=== PATIENT | female | born 1940 | race Caucasian/White ===

== ENCOUNTER 2020-09-09 12:32 | Inpatient (IN) ==
--- OUTSIDE RECORDS SUMMARY | 2020-09-09 12:36 | External Medical Summary | Continuity of Care Document ---
:1940 Author Name Shay Valencia Address Unavailable Unavailable , Care Team Providers Name Role Phone Smiley Solares [email or web address] [place] PCP, UNKNOWN Unavailable Unavailable Assessments Assessed Problems:Cervical spondylosis Problems Cervical spondylosis (721.0) (M47.812) Allergies and Adverse Reactions Furadantin SUSP (Allergy) Percocet TABS (Allergy) Medications Actigall 300 MG CAPS Refills: 0 Effexor 37.5 MG TABS Refills: 0 Fosamax 70 MG Oral Tablet Refills: 0 Simvastatin 10 MG Oral Tablet Refills: 0 hydroCHLOROthiazide 25 MG Oral Tablet Refills: 0 Lisinopril TABS Refills: 0 Multi-Vitamin TABS Refills: 0 Vitamin C TABS Refills: 0 Procedures History of Umbilical Hernia Repair Statu s: Completed History of Hallux Valgus (Bunion) Correction Status: Completed History of Tubal Ligation Status: Comple jane Immunizations Immunizations not documented Family History Unknown Family Member Family history of Hypertension (V17.49) Status: Active Comments: Family History Plan of Treatment Planned Observations Planned Goals not documented Results No Known Results Results not documented Encounters Appointment; Jules Solares M.D. 26-Sep-2010 10:20 Encounter Diagnosis: Problem not documented
--- NOTE | 2020-09-09 12:53 | Emergency Department Note ---
History of Present Illness General Chief complaint: Fall Time Seen by Provider: 09/09/20 12:38 Source: patient Mode of arrival: ambulatory Limitations: no limitations History of Present Illness Provider complaint: Left arm pain This is a 79-year-old female who presents to the ED with a chief complaint of left arm pain. The patient reports that she fell onto her left arm just prior to arrival. He was transported here by EMS. EMS provided morphine 8 mg IV in route which seems to improve the pain. She is neurovascular intact distally. She denies any other significant injuries other than striking her lip, there is a small laceration there. No anticoagulants. Home Medications Medication Instructions Recorded Confirmed Type ascorbic acid (vitamin C) [Vitamin 0 mg PO QAM 09/09/20 09/09/20 History C] atorvastatin 10 mg PO HS 09/09/20 09/09/20 History calcium carbonate-vitamin D3 1 tab PO QAM 09/09/20 09/09/20 History [Caltrate 600 plus D] cholecalciferol (vitamin D3) 0 mcg PO QAM 09/09/20 09/09/20 History [Vitamin D3] furosemide 20 mg PO QAM 09/09/20 09/09/20 History losartan 50 mg PO QAM 09/09/20 09/09/20 History metoprolol succinate 25 mg PO BID 09/09/20 09/09/20 History metoprolol succinate 50 mg PO BID 09/09/20 09/09/20 History multivitamin 1 tab PO QAM 09/09/20 09/09/20 History omeprazole 20 mg PO DAILYBB 09/09/20 09/09/20 History ursodiol 300 mg PO QAM 09/09/20 09/09/20 History venlafaxine 75 mg PO QAM 09/09/20 09/09/20 History Allergies Allergy/AdvReac Type Severity Reaction Status Date / Time acetaminophen Allergy Mild HAS TAKEN Verified 09/09/20 13:53 LORTAB AT HOME Nitrate Analogues Allergy Mild Verified 06/30/09 02:29 nitrofurantoin Allergy Mild Verified 06/30/09 02:29 oxycodone Allergy Mild HAS TAKEN Verified 09/09/20 13:53 LORTAB AT HOME amiodarone AdvReac Intermediate intolerant Unverified 09/09/20 13:53 Past Med/Surg History Medical History (Updated 09/09/20 @ 15:05 by Jeremy Milton DO) High cholesterol Hypertension Social History Smoking Status: Never smoker Review of Systems A total of 10 systems reviewed and were otherwise negative Physical Exam Vital Signs Vital Signs - 24 hr 09/09/20 12:48 Temperature 37.1 C Temperature Source Oral Pulse Rate 70 Pulse Rhythm Regular Pulse Strength Normal Respiratory Rate 16 Respiratory Effort / Characteristics Non-Labored Respiratory Depth Normal Respiratory Pattern Regular Blood Pressure 168/98 H Blood Pressure Mean 121 Blood Pressure Position Sitting Pulse Oximetry 94 Oxygen Delivery Method Room Air Sepsis Recent Fever Within 48 Hours No Sepsis New/Unexplained Change in Mental Status No Sepsis Action Taken by Nursing No Action Required CONSTITUTIONAL/VITAL SIGNS: Reviewed / noted above. GENERAL: Non-toxic in appearance. INTEGUMENTARY: Warm, dry, and [place]. HEAD: Normocephalic. There is a 2 cm laceration in the upper lip that is well approximated and does not include the subcutaneous fatty tissue. EYES: without scleral icterus or trauma. ENT/OROPHARYNX: clear and moist. LYMPHADENOPATHY/NECK: Is supple without lymphadenopathy or meningismus. RESPIRATORY: Lungs clear and equal. CARDIOVASCULAR: Regular rate and rhythm. GI/ABDOMEN: Soft and nontender. No organomegaly or pulsatile mass. No rebound or guarding. Normal bowel sounds. EXTREMITIES: Warm and well perfused. There is tenderness to palpation of the left humerus. Limited range of motion due to pain. Distally neurovascularly intact. BACK: No CVA tenderness. NEUROLOGICAL: Intact without focal deficits. PSYCHIATRIC: normal affect. MUSCULOSKELETAL: Normally developed with good muscle tone. TRIAGE NURSING DOCUMENTATION REVIEWED. Course Administered Medications Discontinued Medications Morphine Sulfate (Morphine Sulfate 4 Mg/Ml 1 Ml Carp\Vial) 4 mg IV NOW STA Stop: 09/09/20 13:49 Last Admin: 09/09/20 13:57 Dose: 4 mg Documented by: [id number] Medical Decision Making Differential Diagnosis Fracture, subluxation, dislocation, contusion, ligamentous injury, neurovascular, compartment syndrome, rhabdomyolysis, as well as other pathologies. Medical Records Attestation: I reviewed the patient's medical records. Imaging Data Radiologist's Impression: Humerus X-Ray 09/09/20 12:39 XR humerus LT 2V HISTORY: 79 years-old Female pain fall acute pain of the left shoulder status post fall COMPARISON: Left shoulder radiographs 10/13/2013 TECHNIQUE: 2 views of the left humerus FINDINGS: Left shoulder total joint arthroplasty. No dislocation. Demineralized appearance of the bones. There is an acute spiral fracture of the mid to distal humeral diaphysis which demonstrates complete displacement posteriorly measuring up to 3.8 cm and laterally measuring up to 1.4 cm. Mild apex medial volar angulation measuring up to 14 degrees. Mild soft tissue swelling. IMPRESSION: Acute displaced and angulated spiral fracture of the mid to distal humeral diaphysis. ACT 112: Negative or not required by law. The above report was generated using voice recognition software. It may contain grammatical, syntax or spelling errors. Electronically signed by: Desean Calderon M.D. 09/09/2020 2:27 PM MDM Narrative Patient presents after fall. Fractures of the left distal humerus. I spoke with Dr. Hoffman. He will see the patient in the ED. Medicine will admit. Patient was treated with IV morphine prehospital as well as here. Distally neurovascularly intact. Impression & Plan Fracture, humerus closed Discharge Plan Visit Data Chief Complaint: Fall ED Provider: Jeremy Milton Discharge Problem: Fracture, humerus closed Patient Disposition: Being Evaluated by Hospitalist Forms Stand Alone Forms: My [facility] [employer] Prescriptions Prescriptions: No Action multivitamin Tablet 1 tab PO QAM RF: 0 losartan 50 mg tablet 50 mg PO QAM RF: 0 ascorbic acid (vitamin C) [Vitamin C] 1,000 mg Tablet 0 mg PO QAM RF: 0 atorvastatin 10 mg tablet 10 mg PO HS RF: 0 metoprolol succinate 50 mg tablet extended release 24 hr 50 mg PO BID RF: 0 furosemide 20 mg tablet 20 mg PO QAM RF: 0 cholecalciferol (vitamin D3) [Vitamin D3] 25 mcg (1,000 unit) Tablet 0 mcg PO QAM RF: 0 Caltrate 600 plus D 600 mg (1,500 mg)-800 unit Tablet,Chewable 1 tab PO QAM RF: 0 venlafaxine 75 mg capsule,extended release 24hr 75 mg PO QAM RF: 0 ursodiol 300 mg capsule 300 mg PO QAM RF: 0 omeprazole 20 mg capsule,delayed release(DR/EC) 20 mg PO DAILYBB RF: 0 metoprolol succinate 25 mg tablet extended release 24 hr 25 mg PO BID RF: 0 Referrals Referrals: Erick Schmidt DO [Primary Care Provider] - Discharge Problem: Fracture, humerus closed Qualifiers: Encounter type: initial encounter Humerus Location: shaft Fracture morphology: spiral Fracture alignment: displaced Laterality: left Qualified Code(s): S42.342A - Displaced spiral fracture of shaft of humerus, left arm, initial encounter for closed fracture
[2020-09-09] MEDS ORDERED: MoRPHine SULFATE 4 MG/ML 1 ML CARP\\VIAL IV STA (13:48)
--- NOTE | 2020-09-09 14:29 | XRay Report ---
XR humerus LT 2V HISTORY: 79 years-old Female pain fall acute pain of the left shoulder status post fall COMPARISON: Left shoulder radiographs 10/13/2013 TECHNIQUE: 2 views of the left humerus FINDINGS: Left shoulder total joint arthroplasty. No dislocation. Demineralized appearance of the bones. There is an acute spiral fracture of the mid to distal humeral diaphysis which demonstrates complete displa cement posteriorly measuring up to 3.8 cm and laterally measuring up to 1.4 cm. Mild apex medial vola r angulation measuring up to 14 degrees. Mild soft tissue swelling. IMPRESSION: Acute displaced and angulated spiral fracture of the mid to distal humeral diaphysis. ACT 112: Negative or not required by law. The above report was generated using voice recognition software. It may contain grammatical, syntax o r spelling errors. Electronically signed by: Desean Calderon M.D. 09/09/2020 2:27 PM
[2020-09-09 15:12] LABS: Basophils # (auto) 0.05 K/uL (0-0.2); Basophils % (auto) 0.4 %; Eosinophils # (auto) 0.07 K/uL (0-0.5); Eosinophils % (auto) 0.6 %; Hemoglobin 14.5 g/dL (12.0-16.0); Immature Granulocytes # (auto) 0.03 K/uL (0.00-0.02); Immature Granulocytes % (auto) 0.3 %; Lymphocytes # (auto) 1.32 K/uL (1.2-3.4); Lymphocytes % (auto) 11.7 %; Mean Corpuscular Hgb Conc 34.5 g/dL (32-36); Mean Corpuscular Volume 89.9 fL (80-100); Mean Platelet Volume 10.2 fL (7.4-10.4); Monocytes # (auto) 0.72 K/uL (0.11-0.59); Monocytes % (auto) 6.4 %; Neutrophils # (auto) 9.06 K/uL (1.4-6.5); Neutrophils % (auto) 80.6 %; Platelet Count 265 K/uL (130-400); RDW Standard Deviation 42.5 fL (36.4-46.3); Red Blood Count 4.67 M/uL (4.2-5.4); White Blood Count 11.25 K/uL (4.8-10.8)
--- NOTE | 2020-09-09 15:21 | History & Physical Report ---
Date of Service September 09, 2020 Assessment & Plan (1) Periprosthetic fracture of shoulder: -Admit to [facility] -Consult Ortho, Dr. Yan Hoffman -Pain control and bowel regimen ordered -PT/OT consults -Allow diet tonight, n.p.o. after midnight except sips and chips with meds -History of previous left shoulder replacement done by Dr. Arceo years ago Medical Clearance: She does not have any cardiac symptoms Has had a negative Stress ECHO in March in 2019 (2) Hypertension: -Continue losartan 50 mg daily, metoprolol succinate 75 mg bid, Lasix 20 mg daily (3) Dyslipidemia: -Continue atorvastatin 10 mg to (4) Paroxysmal SVT (supraventricular tachycardia): -History of atrial tachycardia controlled with infrequent palpitations per Dr. House -Had normal coronary anatomy by left heart cath in 2012 (5) S/P mitral valve repair: -Done November 2012 -Follows with Dr. Gr with cardiology as outpatient -Continue Lasix 20 mg daily -Heart healthy diet -Blood pressure elevated likely secondary to pain and anxiety currently, monitor (6) Biliary cirrhosis: (7) Adjustment disorder with depressed mood: (8) DVT prophylaxis: History of Present Illness Primary Care Provider: Erick Schmidt DO This is an 79-year-old female with PMHx of hypertension, hyperlipidemia, history of paroxysmal SVT, status post mitral valve repair, Ruiz syndrome, osteoporosis, adjustment disorder with depressed mood, and GERD who presents after acute injury sustained earlier today. She reports that she was attempting to remove a flower on a [employer], alter this morning at [facility], and that she had gotten up on a step to reach it, however then forgot that she was up and proceeded to walk, falling off the step and onto her left elbow, and also cut her upper lip. Her pain is currently rated a 10 out of 10 at bedside. She is holding her left arm and it does appear to be swollen above the elbow. She has difficulty moving her fingers due to pain. She denies any decreased sensation to light touch or numbness in distal extremity. Patient denies any history of falls prior to this event. Does not typically use assistive devices when walking. Her , Ryan is at bedside and supports the history. Imaging reveals left distal humerus fracture. She previously had her left shoulder replaced by Dr. Best years ago. Allergies Allergy/AdvReac Type Severity Reaction Status Date / Time acetaminophen Allergy Mild HAS TAKEN Verified 09/09/20 13:53 LORTAB AT HOME Nitrate Analogues Allergy Mild Verified 06/30/09 02:29 nitrofurantoin Allergy Mild Verified 06/30/09 02:29 oxycodone Allergy Mild HAS TAKEN Verified 09/09/20 13:53 LORTAB AT HOME amiodarone AdvReac Intermediate intolerant Unverified 09/09/20 13:53 Home Medications Medication Instructions Recorded Confirmed Type ascorbic acid (vitamin C) [Vitamin 0 mg PO QAM 09/09/20 09/09/20 History C] atorvastatin 10 mg PO HS 09/09/20 09/09/20 History calcium carbonate-vitamin D3 1 tab PO QAM 09/09/20 09/09/20 History [Caltrate 600 plus D] cholecalciferol (vitamin D3) 0 mcg PO QAM 09/09/20 09/09/20 History [Vitamin D3] furosemide 20 mg PO QAM 09/09/20 09/09/20 History losartan 50 mg PO QAM 09/09/20 09/09/20 History metoprolol succinate 25 mg PO BID 09/09/20 09/09/20 History metoprolol succinate 50 mg PO BID 09/09/20 09/09/20 History multivitamin 1 tab PO QAM 09/09/20 09/09/20 History omeprazole 20 mg PO DAILYBB 09/09/20 09/09/20 History ursodiol 300 mg PO QAM 09/09/20 09/09/20 History venlafaxine 75 mg PO QAM 09/09/20 09/09/20 History Past Med/Surg History Medical History (Updated 09/09/20 @ 16:54 by Ellie Monge PA-C) Hypertension Social History Smoking Status: Never smoker Review of Systems Review of Systems: Constitutional: No fever, sweats or chills Eyes: No diplopia, no worsening or blurred vision ENT: normal hearing, no trouble swallowing Mouth: cut upper lip, did not bite through Respiratory: No cough, sputum, dyspnea at rest or on exertion Cardiovascular: No chest pain, tightness or palpitations Abdomen: No pain, nausea, vomiting, diarrhea or constipation Musculoskeletal: Left arm pain rated 10/10, no other joint pain, calf pain, swelling Neurologic: No weakness, numbness/tingling, or balance problems Psychiatric: + Depression Skin: No rash or itch Physical Exam Physical Exam: General: awake, alert, mild distress, slightly anxious Head: Normocephalic, atraumatic ENT: PERRL, EOMI, no pharyngeal exudate, mucous membranes moist, + lesion about 1 cm in length on upper lip, does not cross the kade[place] border, teeth intact, no injury, no cut underneath the upper lip. Chest: Clear to auscultation, on room air, no adventitious breath sounds Cardiac: Regular rate and rhythm, + slight systolic murmur, no JVD, normal peripheral pulses, good capillary refill Abdominal: NABS x 4 quadrants, soft, nondistended, nontender to palpation, no rebound or guarding Extremities: LUE layed across chest, pain with movement, able to move fingers, edema proximal to the elbow, no ecchymosis, no open areas of skin. Otherwise normal inspection, no peripheral edema or erythema, calfs nontender to palpation Psych: Anxious mood and affect Neuro: AAO x 3, strength intact bilaterally and rated 5/5, no motor deficits, speech is clear, no peripheral sensory deficits Results & Data Results & Data ([facility]) Vital Signs (Past 12 Hours) Vital Signs Temp Pulse Resp BP Pulse Ox 09/09/20 12:48 37.1 C 70 16 168/98 H 94 Diagnostic Findings Humerus X-Ray 09/09/20 12:39 XR humerus LT 2V HISTORY: 79 years-old Female pain fall acute pain of the left shoulder status post fall COMPARISON: Left shoulder radiographs 10/13/2013 TECHNIQUE: 2 views of the left humerus FINDINGS: Left shoulder total joint arthroplasty. No dislocation. Demineralized appearance of the bones. There is an acute spiral fracture of the mid to distal humeral diaphysis which demonstrates complete displacement posteriorly measuring up to 3.8 cm and laterally measuring up to 1.4 cm. Mild apex medial volar angulation measuring up to 14 degrees. Mild soft tissue swelling. IMPRESSION: Acute displaced and angulated spiral fracture of the mid to distal humeral diaphysis. ACT 112: Negative or not required by law. The above report was generated using voice recognition software. It may contain grammatical, syntax or spelling errors. Electronically signed by: Desean Calderon M.D. 09/09/2020 2:27 PM Chest X-Ray 09/09/20 14:39 XR chest 1V portable HISTORY: 79 years-old Female Resp sx c/w COVID-19 acute shortness of breath. COVID Positive. COMPARISON: Chest radiographs 12/28/2012 TECHNIQUE: Supine AP view of the chest FINDINGS: Cardiac silhouette is enlarged. Pulmonary vascular congestion. Cardiac valvular prosthesis. No pneumothorax. Interstitial coarsening with ill-defined left lung predominant airspace opacities. No pneumothorax or large pleural effusion. Degenerative changes of the spine and right shoulder. Left shoulder total joint arthroplasty. IMPRESSION: 1. Cardiomegaly with pulmonary vascular congestion. 2. Ill-defined opacities of the left lung suspicious for an infectious or inflammatory pneumonitis. ACT 112: Negative or not required by law. The above report was generated using voice recognition software. It may contain grammatical, syntax or spelling errors. Electronically signed by: Desean Calderon M.D. 09/09/2020 3:41 PM Code Status & VTE Plan Code Status Full code-discussed with the patient at bedside Supervising Physician Co-Signing Physician Notes Attending addendum The patient was seen and examined in emergency room in presence of the She has had an accidental fall from a stool and landed on her face and left upper extremity She suffered periprosthetic fracture of the left shoulder Left upper extremity is in sling now Complains some pain during examination but denies any other symptoms On examination Lying in bed without any apparent distress Hemodynamically stable with blood pressure noted to be high at 168/98 Chestclear to auscultate bilaterally Heart S1-S2 with prosthetic valve sound Abdomenbenign Extremitiesno edema CNSalert, awake and oriented x3 Her admission labs and imaging studies reviewed EKG is unremarkable is in sinus rhythm Chest x-ray pulmonary vascular congestion Humerus x-ray did show acute displaced and angulated spiral fracture of the mid to distal humeral diaphysis Appreciate Ortho input and recommendation for surgery tomorrow There is no contraindication for surgery Agree with assessment and the plan as documented by Ellie Castillo
[2020-09-09 15:25] LABS: Partial Thromboplastin Ratio 0.9; Partial Thromboplastin Time 24.6 Seconds (21.0-31.0); Prothrombin Time 10.4 Seconds (9.0-12.0)
[2020-09-09 15:31] LABS: Albumin Level 3.4 gm/dl (3.4-5.0); BUN Creatinine Ratio 30.4 (10-20); Calcium 9.5 mg/dl (8.5-10.1); Est GFR (African American) 101.3; Est GFR (Non-African American) 87.4; Potassium 5.2 mmol/L (3.5-5.1)
[2020-09-09 15:33] LABS: Albumin Globulin Ratio 0.9 (0.9-2); Bilirubin,Total 0.5 mg/dl (0.2-1); Globulin 3.8 gm/dl (2.5-4.0); Total Protein 7.2 gm/dl (6.4-8.2)
[2020-09-09] MEDS ORDERED: MoRPHine SULFATE 2 MG/ML CARP IV PRN ×2 (15:34→17:38)
--- NOTE | 2020-09-09 15:42 | XRay Report ---
XR chest 1V portable HISTORY: 79 years-old Female Resp sx c/w COVID-19 acute shortness of breath. COVID Positive. COMPARISON: Chest radiographs 12/28/2012 TECHNIQUE: Supine AP view of the chest FINDINGS: Cardiac silhouette is enlarged. Pulmonary vascular congestion. Cardiac valvular prosthesis. No pneumo thorax. Interstitial coarsening with ill-defined left lung predominant airspace opacities. No pneumot horax or large pleural effusion. Degenerative changes of the spine and right shoulder. Left shoulder total joint arthroplasty. IMPRESSION: 1. Cardiomegaly with pulmonary vascular congestion. 2. Ill-defined opacities of the left lung suspicious for an infectious or inflammatory pneumonitis. ACT 112: Negative or not required by law. The above report was generated using voice recognition software. It may contain grammatical, syntax o r spelling errors. Electronically signed by: Desean Calderon M.D. 09/09/2020 3:41 PM
--- NOTE | 2020-09-09 15:45 | Orthopedic Consultation ---
Date of Consultation September 09, 2020 Assessment & Plan (1) Periprosthetic fracture of shoulder: Patient and were educated about injury. We talked about operative and nonoperative methods of management. We talked about the risks benefits of each form of treatment. This potentially could be treated closed if acceptable alignment was obtained. She would be treated in a splint and then eventually a brace. This could result in stiffness. Surgery is more invasive and has some more risks with it but affords anatomic alignment better fracture stability and early range of motion. They elect to proceed with surgery. We will plan on doing this tomorrow morning. She will be admitted to the hospital by medicine. N.p.o. after midnight. She will have her Covid test done today. We talked about the surgery the nature of the operation reviewed the risk benefits rehab and recovery. An informed consent was obtained. No issues with prior surgery. Preop antibiotics. Betadine nasal swab preoperatively. Present on Admission?: Yes History of Present Illness History of Present Illness Perla is 79. 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 She misstepped fell and injured her left arm. She also bumped her mouth. She did not lose consciousness. Dr. Gaurav Hernandez reports that no further treatment with the lip laceration is necessary. She is status post a left shoulder replacement about [address] Arceo. Otherwise complaint free. No tingling numbness. Allergies Allergy/AdvReac Type Severity Reaction Status Date / Time acetaminophen Allergy Mild HAS TAKEN Verified 09/09/20 13:53 LORTAB AT HOME Nitrate Analogues Allergy Mild Verified 06/30/09 02:29 nitrofurantoin Allergy Mild Verified 06/30/09 02:29 oxycodone Allergy Mild HAS TAKEN Verified 09/09/20 13:53 LORTAB AT HOME amiodarone AdvReac Intermediate intolerant Unverified 09/09/20 13:53 Home Medications Medication Instructions Recorded Confirmed Type ascorbic acid (vitamin C) [Vitamin 0 mg PO QAM 09/09/20 09/09/20 History C] atorvastatin 10 mg PO HS 09/09/20 09/09/20 History calcium carbonate-vitamin D3 1 tab PO QAM 09/09/20 09/09/20 History [Caltrate 600 plus D] cholecalciferol (vitamin D3) 0 mcg PO QAM 09/09/20 09/09/20 History [Vitamin D3] furosemide 20 mg PO QAM 09/09/20 09/09/20 History losartan 50 mg PO QAM 09/09/20 09/09/20 History metoprolol succinate 25 mg PO BID 09/09/20 09/09/20 History metoprolol succinate 50 mg PO BID 09/09/20 09/09/20 History multivitamin 1 tab PO QAM 09/09/20 09/09/20 History omeprazole 20 mg PO DAILYBB 09/09/20 09/09/20 History ursodiol 300 mg PO QAM 09/09/20 09/09/20 History venlafaxine 75 mg PO QAM 09/09/20 09/09/20 History Patient History Medical History High cholesterol Hypertension Social History Smoking Status: Never smoker Review of Systems Review of Systems: She will have shortness of breath with ambulating at times but currently has no chest pains or shortness of breath. She denies any tingling or numbness. She has had skin cancer of her leg treated with Mohs surgery. She also has primary biliary sclerosis. This causes her no issues and she follows with Dr. Brokc. She denies having any history of hypertension heart attack stroke other lung liver or kidney disease. She has no issues with bleeding or blood clots. She has never had MRSA. Her allergies are noted. 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 She does not smoke. She drinks socially. Physical Exam Physical Exam: She is awake alert and oriented. She has a swelling and laceration of her lip. She responds to questions appropriately. She moves her right arm and both legs without difficulty. On the left arm she has intact median radial and ulnar motor and sensory functions. Cannot a sex shoulder abduction or elbow flexion. She has sensation intact forearm and lateral arm. There is mild swelling and tenderness in the distal third of the left arm. The shoulder clavicle forearm wrist and hand are nontender. She has normal strength to palmar abduction of the thumb finger abduction and slight wrist excursion but good strength and intact thumb EPL extension. Radial pulses 1+. Skin is closed. Results & Data ([facility]) Vital Signs (Past 12 Hours) Vital Signs Temp Pulse Resp BP Pulse Ox 09/09/20 12:48 37.1 C 70 16 168/98 H 94 Diagnostic Findings Laboratory Results WBC 11.25 K/uL (4.8-10.8) H 09/09/20 15:02 RBC 4.67 M/uL (4.2-5.4) 09/09/20 15:02 Hgb 14.5 g/dL (12.0-16.0) 09/09/20 15:02 Hct 42.0 % (37-47) 09/09/20 15:02 MCV 89.9 fL (80-100) 09/09/20 15: MCH 31.0 pg (25-34) 09/09/20 15:02 MCHC 34.5 g/dL (32-36) 09/09/20 15:02 RDW Std Deviation 42.5 fL (36.4-46.3) 09/09/20 15:02 RDW Coeff of Ruma 13.0 % (11.5-14.5) 09/09/20 15:02 Plt Count 265 K/uL (130-400) 09/09/20 15:02 MPV 10.2 fL (7.4-10.4) 09/09/20 15:02 Immature Gran % (Auto) 0.3 % 09/09/20 15:02 Neut % (Auto) 80.6 % 09/09/20 15:02 Lymph % (Auto) 11.7 % 09/09/20 15:02 [place] % (Auto) 6.4 % 09/09/20 15:02 Eos % (Auto) 0.6 % 09/09/20 15:02 Baso % (Auto) 0.4 % 09/09/20 15:02 Neut # (Auto) 9.06 K/uL (1.4-6.5) H 09/09/20 15:02 Lymph # (Auto) 1.32 K/uL (1.2-3.4) 09/09/20 15:02 [place] # (Auto) 0.72 K/uL (0.11-0.59) H 09/09/20 15:02 Eos # (Auto) 0.07 K/uL (0-0.5) 09/09/20 15:02 Baso # (Auto) 0.05 K/uL (0-0.2) 09/09/20 15:02 Immature Gran # (Auto) 0.03 K/uL (0.00-0.02) H 09/09/20 15:02 PT 10.4 Seconds (9.0-12.0) 09/09/20 15:02 INR 1.0 (0.9-1.1) 09/09/20 15:02 APTT 24.6 Seconds (21.0-31.0) 09/09/20 15:02 PTT Ratio 0.9 09/09/20 15:02 Sodium 139 mmol/L (136-145) 09/09/20 15:02 Potassium 5.2 mmol/L (3.5-5.1) H 09/09/20 15:02 Chloride 105 mmol/L (98-107) 09/09/20 15:02 Carbon Dioxide 30 mmol/L (21-32) 09/09/20 15:02 Anion Gap 4.0 (3-11) 09/09/20 15:02 BUN 17 mg/dl (7-18) 09/09/20 15:02 Creatinine 0.56 mg/dl (0.6-1.2) L 09/09/20 15:02 Est Cr Clr Drug Dosing 69.0 ml/min 09/09/20 15:02 Est GFR ( Amer) 101.3 09/09/20 15:02 Est GFR (Non-Af Amer) 87.4 09/09/20 15:02 BUN/Creatinine Ratio 30.4 (10-20) H 09/09/20 15:02 Glucose 100 mg/dl (70-99) H 09/09/20 15:02 Calcium 9.5 mg/dl (8.5-10.1) 09/09/20 15:02 Total Bilirubin 0.5 mg/dl (0.2-1) 09/09/20 15:02 AST 23 U/L (15-37) 09/09/20 15:02 ALT 30 U/L (12-78) 09/09/20 15:02 Alkaline Phosphatase 145 U/L (45-117) H 09/09/20 15:02 Total Protein 7.2 gm/dl (6.4-8.2) 09/09/20 15:02 Albumin 3.4 gm/dl (3.4-5.0) 09/09/20 15:02 Globulin 3.8 gm/dl (2.5-4.0) 09/09/20 15:02 Albumin/Globulin Ratio 0.9 (0.9-2) 09/09/20 15:02 Impressions Humerus X-Ray 09/09/20 12:39 XR humerus LT 2V HISTORY: 79 years-old Female pain fall acute pain of the left shoulder status post fall COMPARISON: Left shoulder radiographs 10/13/2013 TECHNIQUE: 2 views of the left humerus FINDINGS: Left shoulder total joint arthroplasty. No dislocation. Demineralized appearance of the bones. There is an acute spiral fracture of the mid to distal humeral diaphysis which demonstrates complete displacement posteriorly measuring up to 3.8 cm and laterally measuring up to 1.4 cm. Mild apex medial volar angulation measuring up to 14 degrees. Mild soft tissue swelling. IMPRESSION: Acute displaced and angulated spiral fracture of the mid to distal humeral diaphysis. ACT 112: Negative or not required by law. The above report was generated using voice recognition software. It may contain grammatical, syntax or spelling errors. Electronically signed by: Desean Calderon M.D. 09/09/2020 2:27 PM
[2020-09-09] MEDS ORDERED: HYDROmorphone INJ 0.5 MG/0.5 ML SYR IV STA (15:58)
[2020-09-09 16:38] LABS: Influenza A virus by PCR Negative (Neg); Influenza B virus by PCR Negative (Neg); RSV by PCR Negative (Neg); SARS CoV2 RNA(COVID-19) InHosp NEGATIVE (Negative)
[2020-09-09] MEDS ORDERED: ONDANSETRON INJ 2 MG/ML 2 ML VIAL IV PRN (17:38)
[2020-09-09] MEDS ORDERED: MoRPHine SULFATE 4 MG/ML 1 ML CARP\\VIAL IV PRN (17:38)
[2020-09-09] MEDS ORDERED: ceFAZolin 1000MG 1,000 MG/7.5 ML SYR IV SCH (18:22)
[2020-09-09] MEDS: POLYETHYLENE (MIRALAX) 17 GM PACK PO SCH (18:28)
[2020-09-09] MEDS: bisacodyL 5 MG TABEC PO SCH (18:29)
[2020-09-09] MEDS: ACETAMINOPHEN 500 MG TAB PO SCH (18:29)
[2020-09-09] MEDS: ATORVASTATIN 10 MG TAB PO SCH (20:33)
[2020-09-09] MEDS: METOPROLOL SUCC 25MG EXT REL TAB PO SCH (20:34)
[2020-09-09] MEDS: HYDROmorphone INJ 0.5 MG/0.5 ML SYR IV PRN (23:17)
[2020-09-10] MEDS: ACETAMINOPHEN 500 MG TAB PO SCH ×3 (01:54→18:00)
[2020-09-10] MEDS: HYDROmorphone INJ 0.5 MG/0.5 ML SYR IV PRN (05:53)
[2020-09-10] MEDS: PANTOprazole 40 MG TAB PO SCH (05:57)
[2020-09-10] MEDS ORDERED: TRANEXAMIC ACID / 0.7% NACL 1,000 MG/100 ML BAG IV SCH (06:00)
[2020-09-10] MEDS ORDERED: ceFAZolin 1000MG 1,000 MG/7.5 ML SYR IV SCH (06:00)
[2020-09-10 06:28] LABS: Hematocrit (blood only) 37.9 % (37-47); Hemoglobin 12.8 g/dL (12.0-16.0); Mean Corpuscular Hemoglobin 30.3 pg (25-34); Mean Corpuscular Hgb Conc 33.8 g/dL (32-36); Mean Corpuscular Volume 89.6 fL (80-100); Mean Platelet Volume 10.3 fL (7.4-10.4); Platelet Count 266 K/uL (130-400); RDW Coefficient of Variation 13.1 % (11.5-14.5); RDW Standard Deviation 42.7 fL (36.4-46.3); Red Blood Count 4.23 M/uL (4.2-5.4); White Blood Count 8.61 K/uL (4.8-10.8)
[2020-09-10 06:48] LABS: BUN Creatinine Ratio 35.3 (10-20); Calcium 8.9 mg/dl (8.5-10.1); Creatinine Clr Calc Pharmacy 73.3 ml/min; Est GFR (African American) 102.6; Est GFR (Non-African American) 88.5; Potassium 4.1 mmol/L (3.5-5.1)
[2020-09-10 06:51] LABS: Albumin Globulin Ratio 0.9 (0.9-2); Bilirubin,Total 0.7 mg/dl (0.2-1); Globulin 3.2 gm/dl (2.5-4.0); Total Protein 6.2 gm/dl (6.4-8.2)
--- NOTE | 2020-09-10 07:11 | Anesthesiology Consultation ---
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 Surgery Operation Date: 09/10/20 10:00 Proposed Procedures p Left Periprosthetic Humerus Fracture - Booker Allen MD Height/Weight Height: 5 ft 2 in Weight: 67 kg Allergies Allergy/AdvReac Type Severity Reaction Status Date / Time acetaminophen Allergy Mild HAS TAKEN Verified 09/09/20 13:53 LORTAB AT HOME Nitrate Analogues Allergy Mild Verified 06/30/09 02:29 nitrofurantoin Allergy Mild Verified 06/30/09 02:29 oxycodone Allergy Mild HAS TAKEN Verified 09/09/20 13:53 LORTAB AT HOME amiodarone AdvReac Intermediate intolerant Unverified 09/09/20 13:53 Medications Home Medications Medication Instructions Recorded Confirmed Last Taken ascorbic acid (vitamin C) [Vitamin 0 mg PO QAM 09/09/20 09/09/20 09/09/20 C] atorvastatin 10 mg PO HS 09/09/20 09/09/20 09/08/20 calcium carbonate-vitamin D3 1 tab PO QAM 09/09/20 09/09/20 09/09/20 [Caltrate 600 plus D] cholecalciferol (vitamin D3) 0 mcg PO QAM 09/09/20 09/09/20 09/09/20 [Vitamin D3] furosemide 20 mg PO QAM 09/09/20 09/09/20 09/09/20 losartan 50 mg PO QAM 09/09/20 09/09/20 09/09/20 metoprolol succinate 25 mg PO BID 09/09/20 09/09/20 09/09/20 metoprolol succinate 50 mg PO BID 09/09/20 09/09/20 Unknown multivitamin 1 tab PO QAM 09/09/20 09/09/20 09/09/20 omeprazole 20 mg PO DAILYBB 09/09/20 09/09/20 09/09/20 ursodiol 300 mg PO QAM 09/09/20 09/09/20 09/09/20 venlafaxine 75 mg PO QAM 09/09/20 09/09/20 09/09/20 Active Medications Generic Name Dose Route Start Last Admin Trade Name Freq PRN Reason Stop Dose Admin Acetaminophen 1,000 mg 09/09/20 18:00 09/10/20 01:54 Acetaminophen 500 Mg Tab PO 10/09/20 17:59 Not Given Q8H LOVE Atorvastatin Calcium 10 mg 09/09/20 21:00 09/09/20 20:33 Atorvastatin 10 Mg Tab PO 10/09/20 20:59 10 mg HS LOVE Administration Bisacodyl 5 mg 09/09/20 17:38 09/09/20 18:29 Bisacodyl 5 Mg Tabec PO 10/09/20 17:37 5 mg DAILY LOVE Administration Hydromorphone HCl 0.5 mg 09/09/20 17:38 09/10/20 05:53 Hydromorphone Inj 0.5 Mg/0.5 Ml Syr IV 09/23/20 17:37 0.5 mg Q3H PRN Administration Pain Uncontrolled by Morphine Metoprolol Succinate 75 mg 09/09/20 21:00 09/09/20 20:34 Metoprolol Succ 25mg Ext Rel Tab PO 10/09/20 20:59 75 mg BID LOVE Administration Pantoprazole Sodium 40 mg 09/10/20 06:30 09/10/20 05:57 Pantoprazole 40 Mg Tab PO 10/10/20 06:29 Not Given DAILYBB LOVE Protocol Polyethylene Glycol 17 gm 09/09/20 17:38 09/09/20 18:28 Polyethylene (Miralax) 17 Gm Pack PO 10/09/20 17:37 17 gm DAILY LOVE Administration Past Medical History Medical History Hypertension Social History Smoking Status: Never smoker Hx Alcohol Use: Yes Alcohol type: beer, wine and hard liquor alcohol intake frequency: holidays/special occasions only Hx Substance Use: No substance use type: does not use Physical Exam Vital Signs Last Vital Signs Temp 97.9 F 09/09/20 23:40 Pulse 74 09/09/20 23:40 Resp 18 09/09/20 23:40 BP 124/80 09/09/20 23:40 Pulse Ox 93 09/09/20 23:40 Testing Laboratory Results 09/10/20 06:03 09/10/20 06:03 PT 10.4 Seconds (9.0-12.0) 09/09/20 15:02 INR 1.0 (0.9-1.1) 09/09/20 15:02 APTT 24.6 Seconds (21.0-31.0) 09/09/20 15:02 Electrocardiogram Date: 09/09/20 Normal sinus rhythm, rate 75 bpm Left axis deviation Pulmonary disease pattern Nonspecific ST and T wave abnormality Abnormal ECG When compared with ECG of 28-DEC-2012 16:20, QRS axis Shifted left Nonspecific T wave abnormality no longer evident in Inferior leads T wave inversion no longer evident in Lateral leads Chest X-Ray Date: 09/09/20 IMPRESSION: 1. Cardiomegaly with pulmonary vascular congestion. 2. Ill-defined opacities of the left lung suspicious for an infectious or inflammatory pneumonitis.
[2020-09-10] MEDS ORDERED: fentaNYL citrate 100 MCG/2 ML VIAL ONE ×2 (07:36→13:41)
[2020-09-10] MEDS: METOPROLOL SUCC 25MG EXT REL TAB PO SCH ×2 (07:58→20:38)
[2020-09-10] MEDS: LOSARTAN POTASSIUM 50 MG TAB PO SCH (07:58)
[2020-09-10] MEDS: POLYETHYLENE (MIRALAX) 17 GM PACK PO SCH (07:59)
[2020-09-10] MEDS: FUROSEMIDE 20 MG TAB PO SCH (07:59)
[2020-09-10] MEDS: VENLAFAXINE HCL XR 75 MG CAPXR PO SCH ×2 (08:00→18:00)
[2020-09-10] MEDS: bisacodyL 5 MG TABEC PO SCH (08:00)
[2020-09-10] MEDS: ursodioL 300 MG CAP PO SCH ×2 (08:00→18:00)
[2020-09-10] MEDS ORDERED: ATROPINE SULFATE 0.1 MG/ML 10ML SYR IV PRN (09:02)
[2020-09-10] MEDS ORDERED: ePHEDrine sulfate 50 MG/ML AMP IV PRN (09:02)
[2020-09-10] MEDS ORDERED: fentaNYL citrate 100 MCG/2 ML VIAL IV PRN (09:02)
[2020-09-10] MEDS ORDERED: ONDANSETRON INJ 2 MG/ML 2 ML VIAL IV PRN ×2 (09:02→15:06)
--- NOTE | 2020-09-10 09:34 | History & Physical Bridge Note ---
Date of Service September 10, 2020 History & Physical Bridge Note I have examined the patient, reviewed the History & Physical and in the interval since the performance of the History & Physical I have noted the following changes of clinical significance: no changes noted
--- NOTE | 2020-09-10 13:12 | Electrocardiogram Report ---
Test Reason : Blood Pressure : / mmHG Vent. Rate : 075 BPM Atrial Rate : 075 BPM P-R Int : 168 ms QRS Dur : 076 ms QT Int : 410 ms P-R-T Axes : 084 -56 088 degrees QTc Int : 457 ms Normal sinus rhythm Left axis deviation Poor R wave progression, consider anterior [place] vs. lead placement vs. LVH Nonspecific ST and T wave abnormality Abnormal ECG When compared with ECG of 28-DEC-2012 16:20, QRS axis Shifted left Nonspecific T wave abnormality no longer evident in Inferior leads T wave inversion no longer evident in Lateral leads Confirmed by Myron Muller ([id number]) on 09/10/2020 1:11:56 PM Referred By: REFERRED SELF Confirmed By:Jhonny Muller
[2020-09-10] MEDS ORDERED: KETAMINE 50 MG/5 ML SYRINGE ONE (13:38)
[2020-09-10] MEDS ORDERED: GLYCOPYRROLATE 0.2 MG/ML VIAL ONE (13:40)
[2020-09-10] MEDS ORDERED: NEOSTIGMINE METHYLSULFATE 5 MG/5 ML SYR ONE (13:40)
[2020-09-10] MEDS ORDERED: LIDOCAINE HCL 2% 2 ML VIAL/AMP(20MG/ML) INFIL ONE (13:40)
[2020-09-10] MEDS ORDERED: ONDANSETRON INJ 2 MG/ML 2 ML VIAL ONE (13:40)
[2020-09-10] MEDS ORDERED: PROPOFOL IV EMULSION 10 MG/ML 20 ML VIAL IV ONE (13:40)
[2020-09-10] MEDS ORDERED: DEXAMETHASONE SOD INJ 4 MG/ML VIAL ONE (13:40)
[2020-09-10] MEDS ORDERED: ePHEDrine sulfate 50 MG/ML AMP ONE (13:40)
--- NOTE | 2020-09-10 14:01 | Operative Report ---
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 She fell yesterday sustaining a fracture distal to a well fixed total shoulder stem. She is educated about her options and elected to proceed with surgery. Description of Procedure Informed consent obtained. Patient identified. She identified the operative site as the left shoulder. I marked with my initials. A preop surgical timeout was performed. Preop dose of IV antibiotics was given. She was taken to the operating room positioned supine and the anesthetic was administered. She was then positioned decubitus with the left side up. Beanbag was utilized. Axillary roll inserted. Bony prominences of the upper and lower extremities were inspected and padded. The down arm was placed at about 100 degrees of flexion and physiologic external rotation and held on a padded arm board. A radiolucent insert was applied underneath the mattress. She was on the Chi table. 2 bumps were then placed to allow physiologic position in 80 degrees of abduction and forward flexion with the arm hanging over the side. Care was taken at all times to maintain traction on the arm. X-rays could be obtained. To see arm technique was utilized 1 for the AP and and over the top C arm for the lateral view. Imaging was confirmed. The splint was removed the arm was prescrubbed and prepped and draped in the usual sterile fashion. DVT prophylaxis with SCDs and postoperatively mechanical devices and early mobility. She received a preop dose of IV IV antibiotics as well as TXA. A posterior incision was made approximately 30 cm in length. Curving laterally around the olecranon to the proximal ulna. Electrocautery was utilized to control skin bleeders. Electrocautery was utilized down to subcutaneous tissues down to the level of the fascia. The incision was extended proximally later in the operation. The posterior brachial cutaneous nerve was identified in the proximal extent of the incision preserved and protected including a closure. The division between the lateral and long heads of the triceps was identified and this was bluntly dissected distally and then carried through the tendon sharply with electrocautery down to the level of the olecranon. The radial nerve was then identified and held out of the way and the muscle was then divided distally down to the bone. A window was made laterally at the lateral humeral condyle for placement of the plate. The radial nerve and deep brachial artery were tagged. They were carefully dissected proximally and distally for adequate mobilization. Subperiosteal exposure of the bone proximally was then performed. The fracture was exposed with lion-jaw clamps. Subperiosteal exposure of the fracture ends was performed and the medullary canals were cleaned of soft tissue and hematoma and irrigation was performed. Soft tissues were kept moist throughout the procedure. Irrigation was performed frequently. The fracture was then reduced anatomically and held with a alligator clamp. Two 2.7 mm lag screws were inserted across the fracture with excellent purchase and stability. There was an accessory partial fracture noted just lateral to the proximal screw. This was not appreciated until the screw was tightened and a incomplete fissure was noted. This remained intact throughout the procedure. A clamp was utilized to help support the fracture. A 10 hole posterior lateral Synthes plate was selected and checked for position in length. I placed it over the lateral screw so that it sat in a screw hole. I then pre-bent the plate and aligned it so that it was in direct contact with the bone over most of its length but especially distally and proximally. This was confirmed radiographically. I then placed 2 cortical screws 1 proximally and 1 distally. I then placed a locking screw distally in the most distal slot unicortical. Radiographs confirmed the reduction and positioning of the hardware. I then placed 3 circumferential cables proximally taking care to subperiosteally exposed the bone in a circumferential fashion and protected the radial neurovascular structures. These were placed through button in the plate tightened and then sequentially retightened and crimped. They were all placed with a cramp laterally which placed all of the bulky material away from the radial neurovascular bundle. The most distal of the proximal 6 fixation cluster was a bicortical 3.5 mm lag screw just distal to the plate. I then inserted a unicortical locking screw just above this and this is the level where the radial nerve would lay. There is nothing sharp contacting the radial nerve in terms of the fixation. I inserted 2 more bicortical locking screws distally for excellent stability. The olecranon was not impeded by the plate and the elbow could be fully extended. Car Spotter images were obtained. No tourniquet was utilized. Copious irrigation was performed. The radial nerve was allowed to fall back across plate as mentioned. I closed up the window distally with #1 Vicryl. I then closed the tendinous portion of the triceps along its distal three quarters using interrupted #1 Vicryl oversewn with a locked running 0 Vicryl. The posterior brachial cutaneous nerve was protected and 0 Vicryl was utilized to close the deeper layer followed by 2-0 Vicryl and tricia. Arm cleaned with wet and dry sponges. A bulky soft sterile dressing was applied along with a posterior splint with the elbow in neutral and Tamir wrap was applied from the hand to the shoulder. An arm sling was applied. She was awakened from anesthesia without difficulty and taken to the recovery room in stable condition. There were no specimens or complications and counts were correct. Blood loss is estimated to be 50 cc. At the conclusion of the operation spoke patient's family and informed of my findings. The postoperative plan is admission to the hospital. IV antibiotics. Arm in the sling but when comfortable we can begin some gentle active assisted range of motion. Elevate. The 3 cerclage wires were overlying the stem. There were 10 points of fixation proximally and distally for stability including 2 lag screws. I attest to the content of the Intraoperative Record and any orders documented therein. Any exceptions are noted below.
--- NOTE | 2020-09-10 14:38 | Fluoroscopy Report ---
FL humerus LT 2V CLINICAL HISTORY: LEFT HUMERUS FX COMPARISON STUDY: 09/09/2020 FLUOROSCOPY TIME: 18 seconds. NUMBER OF FLUOROSCOPIC IMAGES: 9 FINDINGS: Intraoperative fluoroscopic spot images demonstrate internal fixation of a periprosthetic mid humeral fracture utilizing a metallic plate and multiple screws. 3 cerclage wires are also present at the le estela of the metallic plate and humeral component overlaps. IMPRESSION: Intraoperative fluoroscopic spot images demonstrating internal fixation of a periprosthe tic mid to distal humeral fracture. ACT 112: Negative or not required by law. Electronically signed by: Rajan Cedeno M.D. 09/10/2020 2:36 PM
--- NOTE | 2020-09-10 14:46 | Anesthesiology Progress Note ---
Date of Service September 10, 2020 Anesthesia Post Procedure Vital Signs Vital Signs: Temp Pulse Pulse Resp BP Pulse Ox 09/10/20 14:35 72 16 113/91 98 09/10/20 14:25 75 18 136/76 99 09/10/20 14:15 97.3 F L 75 16 143/75 H 100 09/10/20 07:16 98.2 F 84 16 124/69 93 09/09/20 23:40 97.9 F 74 18 124/80 93 09/09/20 18:32 97.5 F L 75 16 134/83 92 Pain Intensity Left Arm: Pain Intensity: 10 Transfer of Care Handoff Completed per policy Notes Mental Status: alert / awake / arousable and participated in evaluation Patient Amnestic to Procedure: Yes Nausea / Vomiting: adequately controlled Pain: adequately controlled Airway Patency, RR, SpO2: stable & adequate BP & HR: stable & adequate Hydration State: stable & adequate Anesthetic Complications: no major complications apparent and Pt Satisfied with anesthetic care
[2020-09-10] MEDS ORDERED: traMADol HCL 50 MG TABLET PO PRN (15:06)
[2020-09-10] MEDS ORDERED: bisacodyL 10 MG SUPP PR PRN (15:06)
[2020-09-10] MEDS ORDERED: MAGNESIUM HYDROXIDE SUSP 30 ML UDC PO PRN (15:06)
[2020-09-10] MEDS ORDERED: METOCLOPRAMIDE HCL INJ 5 MG/ML 2 ML VIAL IV PRN (15:06)
[2020-09-10] MEDS ORDERED: NALOXONE HCL 0.4 MG/1 ML VIAL/CARP IV PRN (15:06)
[2020-09-10] MEDS: SODIUM CHLORIDE 0.9% 1000ML 1,000 ML IV SCH (16:51)
--- NOTE | 2020-09-10 17:07 | Hospitalist Progress Note ---
Date of Service September 10, 2020 Assessment & Plan (1) Periprosthetic fracture of shoulder: -Consult Ortho, Dr. Tobar -Pain control and bowel regimen ordered -PT/OT consults -Allow diet tonight, n.p.o. after midnight except sips and chips with meds -History of previous left shoulder replacement done by Dr. Arceo years ago -Status post left shoulder ORIF on 09/10/2020 -Complains some pain at the left shoulder joint but no other significant symptoms Medical Clearance: She does not have any cardiac symptoms Has had a negative Stress ECHO in March in 2019 (2) Hypertension: -Continue losartan 50 mg daily, metoprolol succinate 75 mg bid, Lasix 20 mg daily -Blood pressure is low worse limit of normal (3) Dyslipidemia: -Continue atorvastatin 10 mg to (4) Paroxysmal SVT (supraventricular tachycardia): -History of atrial tachycardia controlled with infrequent palpitations per Dr. House -Had normal coronary anatomy by left heart cath in 2012 -Heart rate is controlled (5) S/P mitral valve repair: -Done November 2012 -Follows with Dr. Gr with cardiology as outpatient -Continue Lasix 20 mg daily -Heart healthy diet -Blood pressure elevated likely secondary to pain and anxiety currently, monitor (6) Biliary cirrhosis: (7) Adjustment disorder with depressed mood: (8) DVT prophylaxis: Admission and Anticipated Discharge Date Admission Date: September 09, 2020 Subjective 09/10/2020 The patient was seen and examined in medical floor She is a status post left shoulder ORIF Has been complaining of some pain left upper extremity and a little drowsy following the surgery Denies any other significant symptoms Review of Systems Review of Systems: All systems reviewed and are unremarkable except as noted below Physical Exam Physical Exam: Lying in bed comfortably Constitutional: + ill appearing and average body habitus Eyes: PERRL, conjunctivae normal, anicteric sclerae ENMT: external ear and nose normal, oropharynx normal Neck: trachea midline, no thyromegaly Respiratory: no respiratory distress Auscultation: lungs clear to auscultation bilaterally Cardiovascular: Rate/Rhythm: regular rate and regular rhythm Heart Sounds: + murmur (2/6 ejection systolic murmur over precordium) Extremities: no edema Gastrointestinal (Abdomen): Inspection/Auscultation: normal bowel sounds; abdomen not distended Percussion/Palpation: abdomen soft; abdomen nontender Musculoskeletal: Left upper extremity is in sling and is status post ORIF of the shoulder Neurologic: Alert, awake and oriented x3 Psychiatric: A+Ox3, euthymic affect Lymphatic: no cervical or axillary lymphadenopathy Results & Data Results & Data ([facility]) Vital Signs (Past 12 Hours) Vital Signs Temp Pulse Pulse Resp BP Pulse Ox 09/10/20 16:05 36.5 C 71 16 105/66 97 09/10/20 15:35 67 16 91/52 L 98 09/10/20 15:05 36.6 C 68 12 114/65 96 09/10/20 14:45 36.5 C 70 15 122/61 92 09/10/20 14:35 72 16 113/91 98 09/10/20 14:25 75 18 136/76 99 09/10/20 14:15 36.3 C L 75 16 143/75 H 100 09/10/20 07:16 36.8 C 84 16 124/69 93 Laboratory Results Short CBC 09/10/20 Range/Units 06:03 WBC 8.61 (4.8-10.8) K/uL Hgb 12.8 (12.0-16.0) g/dL Hct 37.9 (37-47) % Plt Count 266 (130-400) K/uL BMP 09/10/20 06:03 Sodium 137 Potassium 4.1 D Chloride 103 Carbon Dioxide 31 BUN 19 H Creatinine 0.54 L Glucose 93 Calcium 8.9 Liver Function 09/10/20 Range/Units 06:03 Total Bilirubin 0.7 (0.2-1) mg/dl AST 18 (15-37) U/L ALT 25 (12-78) U/L Alkaline Phosphatase 121 H (45-117) U/L Albumin 3.0 L (3.4-5.0) gm/dl Medications Administered Current Inpatient Medications Acetaminophen (Acetaminophen 500 Mg Tab) 1,000 mg PO Q8H LOVE Stop: 10/09/20 17:59 Last Admin: 09/10/20 10:40 Dose: Not Given Documented by: Aspirin (Aspirin 81 Mg Ectab) 81 mg PO QAM LOVE Stop: 10/11/20 08:59 Atorvastatin Calcium (Atorvastatin 10 Mg Tab) 10 mg PO HS LOVE Stop: 10/09/20 20:59 Last Admin: 09/09/20 20:33 Dose: 10 mg Documented by: Bisacodyl (Bisacodyl 5 Mg Tabec) 5 mg PO DAILY [facility] [place] Stop: 10/09/20 17:37 Last Admin: 09/10/20 08:00 Dose: Not Given Documented by: Bisacodyl (Bisacodyl 10 Mg Supp) 10 mg MS DAILY PRN PRN Reason: Constipation Stop: 10/10/20 15:05 Docusate Sodium (Docusate Sodium 100 Mg Cap) 100 mg PO BID LOVE Stop: 10/10/20 20:59 Furosemide (Furosemide 20 Mg Tab) 20 mg PO QAM LOVE Stop: 10/10/20 08:59 Last Admin: 09/10/20 07:59 Dose: Not Given Documented by: Hydromorphone HCl (Hydromorphone Inj 0.5 Mg/0.5 Ml Syr) 0.5 mg IV Q3H PRN PRN Reason: Pain Uncontrolled by Morphine Stop: 09/23/20 17:37 Last Admin: 09/10/20 05:53 Dose: 0.5 mg Documented by: Tranexamic Acid (Tranexamic Acid / 0.7% Nacl) 1,000 mg in 100 mls @ 600 mls/hr IV PREOP LOVE Stop: 09/10/20 18:00 Last Infusion: 09/10/20 15:07 Dose: Infused Documented by: Tranexamic Acid (Tranexamic Acid / 0.7% Nacl) 1,000 mg in 100 mls @ 600 mls/hr IV ONE ONE Stop: 09/10/20 20:09 Cefazolin Sodium (Ancef 1000mg) 1,000 mg in 7.5 mls @ 2.5 mls/min IV PREOP LOVE Stop: 09/10/20 18:00 Last Admin: 09/10/20 10:18 Dose: 2.5 mls/min Documented by: Sodium Chloride (Nss 1000ml) 1,000 mls @ 100 mls/hr IV .Q10H [facility] [place] Stop: 09/11/20 06:00 Last Admin: 09/10/20 16:51 Dose: 100 mls/hr Documented by: Cefazolin Sodium (Ancef 1000mg) 1,000 mg in 7.5 mls @ 2.5 mls/min IV Q8H [facility] [place]; Protocol Stop: 09/11/20 02:02 Losartan Potassium (Losartan Potassium 50 Mg Tab) 50 mg PO QAM [facility] [place] Stop: 10/10/20 08:59 Last Admin: 09/10/20 07:58 Dose: 50 mg Documented by: Magnesium Hydroxide (Magnesium Hydroxide Susp 30 Ml Udc) 30 ml PO Q6H PRN PRN Reason: Constipation Stop: 10/10/20 15:05 Metoclopramide HCl (Metoclopramide Hcl Inj 5 Mg/Ml 2 Ml Vial) 10 mg IV Q6H PRN PRN Reason: Nausea And Vomiting Stop: 10/10/20 15:05 Metoprolol Succinate (Metoprolol Succ 25mg Ext Rel Tab) 75 mg PO BID [facility] [place] Stop: 10/09/20 20:59 Last Admin: 09/10/20 07:58 Dose: 75 mg Documented by: Morphine Sulfate (Morphine Sulfate 2 Mg/Ml Carp) 2 mg IV Q2H PRN PRN Reason: Pain Stop: 09/23/20 17:37 Morphine Sulfate (Morphine Sulfate 4 Mg/Ml 1 Ml Carp\Vial) 4 mg IV Q2H PRN PRN Reason: Pain Stop: 09/23/20 17:37 Multivitamins (Multivitamin Tab) [facility] [place] [facility] [place]: 10/11/20 08:59 Naloxone HCl (Naloxone Hcl 0.4 Mg/1 Ml Vial/Carp) 0.1 mg IV Q5M PRN PRN Reason: Oversedation/Resp Depression Stop: 10/10/20 15:05 Ondansetron HCl (Ondansetron Inj 2 Mg/Ml 2 Ml Vial) 4 mg IV Q4H PRN PRN Reason: Nausea And Vomiting Stop: 10/09/20 17:37 Ondansetron HCl (Ondansetron Inj 2 Mg/Ml 2 Ml Vial) 4 mg IV Q6H PRN PRN Reason: Nausea And Vomiting Stop: 10/10/20 15:05 Pantoprazole Sodium (Pantoprazole 40 Mg Tab) [facility]; Protocol Stop: 10/10/20 06:29 Last Admin: 09/10/20 05:57 Dose: Not Given Documented by: Polyethylene Glycol (Polyethylene (Miralax) 17 Gm Pack) 17 gm PO DAILY [facility] [place] Stop: 10/09/20 17:37 Last Admin: 09/10/20 07:59 Dose: Not Given Documented by: Sennosides (Senna 8.6 Mg Tab) 17.2 mg PO HS [facility] [place] Stop: 10/10/20 20:59 Tramadol HCl (Tramadol Hcl 50 Mg Tablet) 50 - 100 mg PO Q4H PRN PRN Reason: Pain & Pre PT Stop: 10/10/20 15:05 Ursodiol (Ursodiol 300 Mg Cap) 300 mg PO QAM [facility] [place] Stop: 10/10/20 08:59 Last Admin: 09/10/20 08:00 Dose: Not Given Documented by: Venlafaxine HCl (Venlafaxine Hcl Xr 75 Mg Capxr) 75 mg PO QAM [facility] [place] Stop: 10/10/20 08:59 Last Admin: 09/10/20 08:00 Dose: Not Given Documented by:
[2020-09-10] MEDS: ceFAZolin 1000MG 1,000 MG/7.5 ML SYR IV SCH (17:59)
[2020-09-10] MEDS ORDERED: TRANEXAMIC ACID / 0.7% NACL 1,000 MG/100 ML BAG IV ONE (20:00)
[2020-09-10] MEDS: DOCUSATE SODIUM 100 MG CAP PO SCH (20:37)
[2020-09-10] MEDS: SENNA 8.6 MG TAB PO SCH (20:38)
[2020-09-10] MEDS: ATORVASTATIN 10 MG TAB PO SCH (20:38)
[2020-09-11] MEDS: HYDROmorphone INJ 0.5 MG/0.5 ML SYR IV PRN ×3 (00:02→23:16)
[2020-09-11] MEDS: SODIUM CHLORIDE 0.9% 1000ML 1,000 ML IV SCH (02:01)
[2020-09-11] MEDS: ACETAMINOPHEN 500 MG TAB PO SCH ×3 (02:02→18:04)
[2020-09-11] MEDS: ceFAZolin 1000MG 1,000 MG/7.5 ML SYR IV SCH (02:02)
[2020-09-11] MEDS: PANTOprazole 40 MG TAB PO SCH (05:52)
[2020-09-11 06:26] LABS: Basophils # (auto) 0.01 K/uL (0-0.2); Basophils % (auto) 0.1 %; Hematocrit (blood only) 32.1 % (37-47); Hemoglobin 11.1 g/dL (12.0-16.0); Immature Granulocytes # (auto) 0.02 K/uL (0.00-0.02); Immature Granulocytes % (auto) 0.1 %; Lymphocytes # (auto) 1.19 K/uL (1.2-3.4); Lymphocytes % (auto) 8.2 %; Mean Corpuscular Hemoglobin 30.8 pg (25-34); Mean Corpuscular Hgb Conc 34.6 g/dL (32-36); Mean Corpuscular Volume 89.2 fL (80-100); Mean Platelet Volume 10.7 fL (7.4-10.4); Monocytes # (auto) 2.08 K/uL (0.11-0.59); Monocytes % (auto) 14.4 %; Neutrophils # (auto) 11.15 K/uL (1.4-6.5); Neutrophils % (auto) 77.2 %; Platelet Count 270 K/uL (130-400); RDW Coefficient of Variation 13.2 % (11.5-14.5); RDW Standard Deviation 43.1 fL (36.4-46.3); White Blood Count 14.45 K/uL (4.8-10.8)
[2020-09-11 06:57] LABS: Albumin Level 2.7 gm/dl (3.4-5.0); BUN Creatinine Ratio 36.8 (10-20); Calcium 8.5 mg/dl (8.5-10.1); Creatinine Clr Calc Pharmacy 68.3 ml/min; Est GFR (African American) 100.2; Est GFR (Non-African American) 86.4; Potassium 4.4 mmol/L (3.5-5.1)
[2020-09-11 07:00] LABS: Albumin Globulin Ratio 0.8 (0.9-2); Bilirubin,Total 0.7 mg/dl (0.2-1); Globulin 3.2 gm/dl (2.5-4.0); Total Protein 5.9 gm/dl (6.4-8.2)
[2020-09-11] MEDS: LOSARTAN POTASSIUM 50 MG TAB PO SCH (08:29)
[2020-09-11] MEDS: FUROSEMIDE 20 MG TAB PO SCH (08:30)
[2020-09-11] MEDS: METOPROLOL SUCC 25MG EXT REL TAB PO SCH ×2 (08:30→22:01)
[2020-09-11] MEDS: VENLAFAXINE HCL XR 75 MG CAPXR PO SCH (08:30)
[2020-09-11] MEDS: POLYETHYLENE (MIRALAX) 17 GM PACK PO SCH (08:31)
[2020-09-11] MEDS: ASPIRIN 81 MG ECTAB PO SCH (08:31)
[2020-09-11] MEDS: ursodioL 300 MG CAP PO SCH (08:31)
[2020-09-11] MEDS: MULTIVITAMIN TAB PO SCH (08:31)
[2020-09-11] MEDS: DOCUSATE SODIUM 100 MG CAP PO SCH ×2 (08:42→22:00)
[2020-09-11] MEDS: bisacodyL 5 MG TABEC PO SCH (08:42)
--- NOTE | 2020-09-11 11:05 | Progress Notes ---
DATE: 09/11/2020 The patient is seen in conjunction with PT. She is sitting up. The left arm was heavy and it hurts. The tip of her thumb is numb, but she otherwise reports normal sensation in her hand. She is afebrile and her vital signs are stable. Her labs are reviewed today and her white blood cell count is 14, likely secondary to stress. Her hemoglobin is 11, hematocrit 32, platelet count 270. Her PRP is noted. Splint and dressing intact, clean and dry. Bandages loosened around the thumb area which was uncomfortable for her. She has 5/5 thumb and finger extension, palmar abduction and finger abduction. There is numbness in the tip of the thumb. Capillary refill is less than 2 seconds. Radial pulses 1+. She is status post ORIF of a periprosthetic fracture of the left humerus. PLAN: She will get PT and OT. Elevate and ice. Continue to monitor. Radial nerve is working. Some residual numbness in the thumb, hopefully, will improve. She is nonweightbearing on the left arm. We will plan on meeting with her tomorrow, changing her dressing, removing the splint and beginning some movement. She will need followup in 2 weeks for checkup in the office. Aspirin for DVT prophylaxis. I will need to check a vitamin D level and get her some supplemental vitamin D as well as improve her nutrition.
[2020-09-11] MEDS ORDERED: ERGOCALCIFEROL 50,000 UNITS 1250 MCG CAP PO ONE (12:00)
--- NOTE | 2020-09-11 15:19 | Hospitalist Progress Note ---
Date of Service September 11, 2020 Assessment & Plan (1) Periprosthetic fracture of shoulder: -Consult Ortho, Dr. Tobar -Pain control and bowel regimen ordered -PT/OT consults -Allow diet tonight, n.p.o. after midnight except sips and chips with meds -History of previous left shoulder replacement done by Dr. Arceo years ago -Status post left shoulder ORIF on 09/10/2020 -Complains some pain at the left shoulder joint but no other significant symptoms -Likely to be discharged tomorrow Medical Clearance: She does not have any cardiac symptoms Has had a negative Stress ECHO in March in 2019 (2) Hypertension: -Continue losartan 50 mg daily, metoprolol succinate 75 mg bid, Lasix 20 mg daily -Blood pressure is lower limit of normal (3) Dyslipidemia: -Continue atorvastatin 10 mg to (4) Paroxysmal SVT (supraventricular tachycardia): -History of atrial tachycardia controlled with infrequent palpitations per Dr. House -Had normal coronary anatomy by left heart cath in 2012 -Heart rate is controlled (5) S/P mitral valve repair: -Done November 2012 -Follows with Dr. Gr with cardiology as outpatient -Continue Lasix 20 mg daily -Heart healthy diet -Blood pressure elevated likely secondary to pain and anxiety currently, monitor -No cardiac symptoms (6) Biliary cirrhosis: (7) Adjustment disorder with depressed mood: (8) DVT prophylaxis: Will be given aspirin on discharge Admission and Anticipated Discharge Date Admission Date: September 09, 2020 Subjective 09/10/2020 The patient was seen and examined in medical floor She is a status post left shoulder ORIF Has been complaining of some pain left upper extremity and a little drowsy following the surgery Denies any other significant symptoms 09/11/2020 The patient was seen and examined in medical floor She is a status post left shoulder ORIF Still complaining of pain in the left forearm and left wrist area Denies any other significant symptoms Review of Systems Review of Systems: All systems reviewed and are unremarkable except as noted below Musculoskeletal: + joint pain (Pain in left shoulder and elbow) Physical Exam Physical Exam: Lying in bed with moderate pain involving the left upper extremity Constitutional: + ill appearing and average body habitus Eyes: PERRL, conjunctivae normal, anicteric sclerae ENMT: external ear and nose normal, oropharynx normal Neck: trachea midline, no thyromegaly Respiratory: no respiratory distress Auscultation: lungs clear to auscultation bilaterally Cardiovascular: Rate/Rhythm: regular rate and regular rhythm Heart Sounds: + murmur (2/6 ejection systolic murmur over precordium) Extremities: no edema Gastrointestinal (Abdomen): Inspection/Auscultation: normal bowel sounds; abdomen not distended Percussion/Palpation: abdomen soft; abdomen nontender Musculoskeletal: Left upper extremity pain mostly in shoulder, elbow and wrist Psychiatric: A+Ox3, euthymic affect Lymphatic: no cervical or axillary lymphadenopathy Results & Data Results & Data ([facility]) Vital Signs (Past 12 Hours) Vital Signs Temp Pulse Resp BP Pulse Ox 09/11/20 08:33 76 112/63 94 09/11/20 07:21 36.9 C 75 18 112/69 94 09/11/20 03:43 36.7 C 73 18 107/68 94 Laboratory Results Short CBC 09/11/20 Range/Units 05:45 WBC 14.45 H (4.8-10.8) K/uL Hgb 11.1 L (12.0-16.0) g/dL Hct 32.1 L (37-47) % Plt Count 270 (130-400) K/uL BMP 09/11/20 05:45 Sodium 135 L Potassium 4.4 Chloride 103 Carbon Dioxide 27 BUN 21 H Creatinine 0.58 L Glucose 102 H Calcium 8.5 Liver Function 09/11/20 Range/Units 05:45 Total Bilirubin 0.7 (0.2-1) mg/dl AST 32 (15-37) U/L ALT 24 (12-78) U/L Alkaline Phosphatase 99 (45-117) U/L Albumin 2.7 L (3.4-5.0) gm/dl Medications Administered Current Inpatient Medications Acetaminophen (Acetaminophen 500 Mg Tab) 1,000 mg PO Q8H LOVE Stop: 10/09/20 17:59 Last Admin: 09/11/20 11:16 Dose: 1,000 mg Documented by: Aspirin (Aspirin 81 Mg Ectab) 81 mg PO QAM LOVE Stop: 10/11/20 08:59 Last Admin: 09/11/20 08:31 Dose: 81 mg Documented by: Atorvastatin Calcium (Atorvastatin 10 Mg Tab) 10 mg PO HS LOVE Stop: 10/09/20 20:59 Last Admin: 09/10/20 20:38 Dose: 10 mg Documented by: Bisacodyl (Bisacodyl 5 Mg Tabec) 5 mg PO DAILY [facility] Stop: 10/09/20 17:37 Last Admin: 09/11/20 08:42 Dose: Not Given Documented by: Bisacodyl (Bisacodyl 10 Mg Supp) 10 mg NE DAILY PRN PRN Reason: Constipation Stop: 10/10/20 15:05 Docusate Sodium (Docusate Sodium 100 Mg Cap) 100 mg PO BID LOVE Stop: 10/10/20 20:59 Last Admin: 09/11/20 08:42 Dose: 100 mg Documented by: Furosemide (Furosemide 20 Mg Tab) 20 mg PO QAM [facility] Stop: 10/10/20 08:59 Last Admin: 09/11/20 08:30 Dose: 20 mg Documented by: Hydromorphone HCl (Hydromorphone Inj 0.5 Mg/0.5 Ml Syr) 0.5 mg IV Q3H PRN PRN Reason: Pain Uncontrolled by Morphine Stop: 09/23/20 17:37 Last Admin: 09/11/20 05:51 Dose: 0.5 mg Documented by: Losartan Potassium (Losartan Potassium 50 Mg Tab) 50 mg PO QAM [facility] Stop: 10/10/20 08:59 Last Admin: 09/11/20 08:29 Dose: 50 mg Documented by: Magnesium Hydroxide (Magnesium Hydroxide Susp 30 Ml Udc) 30 ml PO Q6H PRN PRN Reason: Constipation Stop: 10/10/20 15:05 Metoclopramide HCl (Metoclopramide Hcl Inj 5 Mg/Ml 2 Ml Vial) 10 mg IV Q6H PRN PRN Reason: Nausea And Vomiting Stop: 10/10/20 15:05 Metoprolol Succinate (Metoprolol Succ 25mg Ext Rel Tab) 75 mg PO BID [facility] Stop: 10/09/20 20:59 Last Admin: 09/11/20 08:30 Dose: 75 mg Documented by: Morphine Sulfate (Morphine Sulfate 2 Mg/Ml Carp) 2 mg IV Q2H PRN PRN Reason: Pain Stop: 09/23/20 17:37 Morphine Sulfate (Morphine Sulfate 4 Mg/Ml 1 Ml Carp\Vial) 4 mg IV Q2H PRN PRN Reason: Pain Stop: 09/23/20 17:37 Multivitamins (Multivitamin Tab) [facility] [place] Stop: 10/11/20 08:59 Last Admin: 09/11/20 08:31 Dose: 1 tab Documented by: Naloxone HCl (Naloxone Hcl 0.4 Mg/1 Ml Vial/Carp) 0.1 mg IV Q5M PRN PRN Reason: Oversedation/Resp Depression Stop: 10/10/20 15:05 Ondansetron HCl (Ondansetron Inj 2 Mg/Ml 2 Ml Vial) 4 mg IV Q4H PRN PRN Reason: Nausea And Vomiting Stop: 10/09/20 17:37 Ondansetron HCl (Ondansetron Inj 2 Mg/Ml 2 Ml Vial) 4 mg IV Q6H PRN PRN Reason: Nausea And Vomiting Stop: 10/10/20 15:05 Pantoprazole Sodium (Pantop[facility]ole 40 Mg Tab) [facility] Protocol Stop: 10/10/20 06:29 Last Admin: 09/11/20 05:52 Dose: 40 mg Documented by: Polyethylene Glycol (Polyethylene (Miralax) 17 Gm Pack) 17 gm PO DAILY [facility] Stop: 10/09/20 17:37 Last Admin: 09/11/20 08:31 Dose: 17 gm Documented by: Sennosides (Senna 8.6 Mg Tab) 17.2 mg PO HS [facility] Stop: 10/10/20 20:59 Last Admin: 09/10/20 20:38 Dose: 17.2 mg Documented by: Tramadol HCl (Tramadol Hcl 50 Mg Tablet) 50 - 100 mg PO Q4H PRN PRN Reason: Pain & Pre PT Stop: 10/10/20 15:05 Ursodiol (Ursodiol 300 Mg Cap) 300 mg PO [facility] Stop: 10/10/20 08:59 Last Admin: 09/11/20 08:31 Dose: 300 mg Documented by: Venlafaxine HCl (Venlafaxine Hcl Xr 75 Mg Capxr) [facility] [place] Stop: 10/10/20 08:59 Last Admin: 09/11/20 08:30 Dose: 75 mg Documented by:
[2020-09-11] MEDS: ATORVASTATIN 10 MG TAB PO SCH (22:00)
[2020-09-11] MEDS: SENNA 8.6 MG TAB PO SCH (22:00)
[2020-09-12] MEDS: ACETAMINOPHEN 500 MG TAB PO SCH ×2 (02:52→10:35)
[2020-09-12] MEDS: PANTOprazole 40 MG TAB PO SCH (06:10)
[2020-09-12 06:22] LABS: Basophils # (auto) 0.04 K/uL (0-0.2); Basophils % (auto) 0.3 %; Eosinophils # (auto) 0.07 K/uL (0-0.5); Eosinophils % (auto) 0.6 %; Hematocrit (blood only) 30.4 % (37-47); Hemoglobin 10.4 g/dL (12.0-16.0); Immature Granulocytes # (auto) 0.02 K/uL (0.00-0.02); Immature Granulocytes % (auto) 0.2 %; Lymphocytes # (auto) 2.36 K/uL (1.2-3.4); Lymphocytes % (auto) 19.7 %; Mean Corpuscular Hemoglobin 30.3 pg (25-34); Mean Corpuscular Hgb Conc 34.2 g/dL (32-36); Mean Corpuscular Volume 88.6 fL (80-100); Mean Platelet Volume 10.5 fL (7.4-10.4); Monocytes # (auto) 1.65 K/uL (0.11-0.59); Monocytes % (auto) 13.8 %; Neutrophils # (auto) 7.85 K/uL (1.4-6.5); Neutrophils % (auto) 65.4 %; Platelet Count 251 K/uL (130-400); RDW Coefficient of Variation 13.4 % (11.5-14.5); RDW Standard Deviation 43.7 fL (36.4-46.3); Red Blood Count 3.43 M/uL (4.2-5.4); White Blood Count 11.99 K/uL (4.8-10.8)
[2020-09-12 06:46] LABS: Albumin Level 2.7 gm/dl (3.4-5.0); BUN Creatinine Ratio 43.5 (10-20); Creatinine Clr Calc Pharmacy 61.9 ml/min; Est GFR (Non-African American) 83.7; Potassium 3.9 mmol/L (3.5-5.1)
[2020-09-12 06:49] LABS: Albumin Globulin Ratio 0.9 (0.9-2); Bilirubin,Total 0.6 mg/dl (0.2-1); Globulin 3.1 gm/dl (2.5-4.0); Total Protein 5.8 gm/dl (6.4-8.2)
[2020-09-12] MEDS: ursodioL 300 MG CAP PO SCH (08:37)
[2020-09-12] MEDS: DOCUSATE SODIUM 100 MG CAP PO SCH (08:37)
[2020-09-12] MEDS: FUROSEMIDE 20 MG TAB PO SCH (08:37)
[2020-09-12] MEDS: LOSARTAN POTASSIUM 50 MG TAB PO SCH (08:37)
[2020-09-12] MEDS: ASPIRIN 81 MG ECTAB PO SCH (08:37)
[2020-09-12] MEDS: VENLAFAXINE HCL XR 75 MG CAPXR PO SCH (08:38)
[2020-09-12] MEDS: MULTIVITAMIN TAB PO SCH (08:38)
[2020-09-12] MEDS: POLYETHYLENE (MIRALAX) 17 GM PACK PO SCH (08:38)
[2020-09-12] MEDS: bisacodyL 5 MG TABEC PO SCH (08:38)
[2020-09-12] MEDS: METOPROLOL SUCC 25MG EXT REL TAB PO SCH (08:38)
--- NOTE | 2020-09-12 10:22 | Operative Report ---
Post Operative Report Pre & Post Diagnosis Operation Date: 09/10/20 10:00 Pre-Op Diagnosis: Left humerus fracture Post-Op Diagnosis: Left humerus fracture I identified the patient and participated in the time-out.: Yes Procedure Operation Date: 09/10/20 10:00 Actual Procedures p Open reduction internal fixation Left Periprosthetic Humerus Fracture(Left) - Booker Allen MD Surgeon Dr Allen Coal Bagger Emy Guido no resident or fellow available Estimated Blood Loss 50 Findings Consistent with Post-Op Diagnosis Specimens none Complications none Description of Procedure See Dr Allen note. I was first cook during entire case to include prepping, draping, limb and instrument handling, wound closure, dressings, splinting. I attest to the content of the Intraoperative Record and any orders documented therein. Any exceptions are noted below.
--- NOTE | 2020-09-12 11:18 | Hospitalist Progress Note ---
Date of Service September 12, 2020 Assessment & Plan (1) Periprosthetic fracture of shoulder: -Consult Ortho, Dr. Tobar -Pain control and bowel regimen ordered -PT/OT consults -Allow diet tonight, n.p.o. after midnight except sips and chips with meds -History of previous left shoulder replacement done by Dr. Arceo years ago -Status post left shoulder ORIF on 09/10/2020 -Complains some pain at the left shoulder joint but no other significant symptoms -Minimal pain at rest -Awaiting Ortho evaluation today and possible discharge following that -Likely to need home health services on discharge Medical Clearance: She does not have any cardiac symptoms Has had a negative Stress ECHO in March in 2019 (2) Hypertension: -Continue losartan 50 mg daily, metoprolol succinate 75 mg bid, Lasix 20 mg daily -Blood pressure is lower limit of normal (3) Dyslipidemia: -Continue atorvastatin 10 mg to (4) Paroxysmal SVT (supraventricular tachycardia): -History of atrial tachycardia controlled with infrequent palpitations per Dr. House -Had normal coronary anatomy by left heart cath in 2012 -Heart rate is controlled (5) S/P mitral valve repair: -Done November 2012 -Follows with Dr. Gr with cardiology as outpatient -Continue Lasix 20 mg daily -Heart healthy diet -Blood pressure elevated likely secondary to pain and anxiety currently, monitor -No cardiac symptoms (6) Biliary cirrhosis: (7) Adjustment disorder with depressed mood: (8) DVT prophylaxis: Will be given aspirin on discharge Likely discharge this afternoon Admission and Anticipated Discharge Date Admission Date: September 09, 2020 Subjective 09/10/2020 The patient was seen and examined in medical floor She is a status post left shoulder ORIF Has been complaining of some pain left upper extremity and a little drowsy following the surgery Denies any other significant symptoms 09/11/2020 The patient was seen and examined in medical floor She is a status post left shoulder ORIF Still complaining of pain in the left forearm and left wrist area Denies any other significant symptoms 09/12/2020 The patient was seen and examined in medical floor She complains of some pain in the left thumb and left upper extremity with movement Denies any other symptoms She has been ambulating in the room without any problem Review of Systems Review of Systems: All systems reviewed and are unremarkable except as noted below Musculoskeletal: + joint pain (Pain in left shoulder and elbow) Physical Exam Physical Exam: Lying in bed with moderate pain involving the left upper extremity Constitutional: + ill appearing and average body habitus Eyes: PERRL, conjunctivae normal, anicteric sclerae ENMT: external ear and nose normal, oropharynx normal Neck: trachea midline, no thyromegaly Respiratory: no respiratory distress Auscultation: lungs clear to auscultation bilaterally Cardiovascular: Rate/Rhythm: regular rate and regular rhythm Heart Sounds: + murmur (2/6 ejection systolic murmur over precordium) Extremities: no edema Gastrointestinal (Abdomen): Inspection/Auscultation: normal bowel sounds; abdomen not distended Percussion/Palpation: abdomen soft; abdomen nontender Musculoskeletal: Left upper extremity is in sling. Pain with movement of the left thumb without any evidence of fracture on examination Neurologic: Alert, awake and oriented x3. Generally weak but no focal neuro deficit Psychiatric: A+Ox3, euthymic affect Lymphatic: no cervical or axillary lymphadenopathy Results & Data Results & Data ([facility]) Vital Signs (Past 12 Hours) Vital Signs Temp Pulse Pulse Resp BP Pulse Ox 09/12/20 07:24 36.6 C 88 18 116/76 95 09/11/20 23:22 36.7 C 76 14 116/73 91 Laboratory Results Short CBC 09/12/20 Range/Units 05:38 WBC 11.99 H (4.8-10.8) K/uL Hgb 10.4 L (12.0-16.0) g/dL Hct 30.4 L (37-47) % Plt Count 251 (130-400) K/uL BMP 09/12/20 05:38 Sodium 136 Potassium 3.9 Chloride 104 Carbon Dioxide 28 BUN 28 H Creatinine 0.64 Glucose 92 Calcium 9.0 Liver Function 09/12/20 Range/Units 05:38 Total Bilirubin 0.6 (0.2-1) mg/dl AST 45 H (15-37) U/L ALT 26 (12-78) U/L Alkaline Phosphatase 113 (45-117) U/L Albumin 2.7 L (3.4-5.0) gm/dl Medications Administered Current Inpatient Medications Acetaminophen (Acetaminophen 500 Mg Tab) 1,000 mg PO Q8H [facility] Stop: 10/09/20 17:59 Last Admin: 09/12/20 10:35 Dose: 1,000 mg Documented by: Aspirin (Aspirin 81 Mg Ectab) 81 mg PO QAM [facility] Stop: 10/11/20 08:59 Last Admin: 09/12/20 08:37 Dose: 81 mg Documented by: Atorvastatin Calcium (Atorvastatin 10 Mg Tab) 10 mg PO HS [facility] Stop: 10/09/20 20:59 Last Admin: 09/11/20 22:00 Dose: 10 mg Documented by: Bisacodyl (Bisacodyl 5 Mg Tabec) 5 mg PO DAILY [facility] Stop: 10/09/20 17:37 Last Admin: 09/12/20 08:38 Dose: Not Given Documented by: Bisacodyl (Bisacodyl 10 Mg Supp) 10 mg VT DAILY PRN PRN Reason: Constipation Stop: 10/10/20 15:05 Docusate Sodium (Docusate Sodium 100 Mg Cap) 100 mg PO BID [facility] Stop: 10/10/20 20:59 Last Admin: 09/12/20 08:37 Dose: 100 mg Documented by: Furosemide (Furosemide 20 Mg Tab) [facility] [place] Stop: 10/10/20 08:59 Last Admin: 09/12/20 08:37 Dose: 20 mg Documented by: Hydromorphone HCl (Hydromorphone Inj 0.5 Mg/0.5 Ml Syr) 0.5 mg IV Q3H PRN PRN Reason: Pain Uncontrolled by Morphine Stop: 09/23/20 17:37 Last Admin: 09/11/20 23:16 Dose: 0.5 mg Documented by: Losartan Potassium (Losartan Potassium 50 Mg Tab) 50 mg [facility] [place] Stop: 10/10/20 08:59 Last Admin: 09/12/20 08:37 Dose: 50 mg Documented by: Magnesium Hydroxide (Magnesium Hydroxide Susp 30 Ml Udc) 30 ml PO Q6H PRN PRN Reason: Constipation Stop: 10/10/20 15:05 Metoclopramide HCl (Metoclopramide Hcl Inj 5 Mg/Ml 2 Ml Vial) 10 mg IV Q6H PRN PRN Reason: Nausea And Vomiting Stop: 10/10/20 15:05 Metoprolol Succinate (Metoprolol Succ 25mg Ext Rel Tab) 75 mg PO BID [facility] Stop: 10/09/20 20:59 Last Admin: 09/12/20 08:38 Dose: 75 mg Documented by: Morphine Sulfate (Morphine Sulfate 2 Mg/Ml Carp) 2 mg IV Q2H PRN PRN Reason: Pain Stop: 09/23/20 17:37 Morphine Sulfate (Morphine Sulfate 4 Mg/Ml 1 Ml Carp\Vial) 4 mg IV Q2H PRN PRN Reason: Pain Stop: 09/23/20 17:37 Multivitamins (Multivitamin Tab) 1 tab [facility] [place] Stop: 10/11/20 08:59 Last Admin: 09/12/20 08:38 Dose: 1 tab Documented by: Naloxone HCl (Naloxone Hcl 0.4 Mg/1 Ml Vial/Carp) 0.1 mg IV Q5M PRN PRN Reason: Oversedation/Resp Depression Stop: 10/10/20 15:05 Ondansetron HCl (Ondansetron Inj 2 Mg/Ml 2 Ml Vial) 4 mg IV Q4H PRN PRN Reason: Nausea And Vomiting Stop: 10/09/20 17:37 Ondansetron HCl (Ondansetron Inj 2 Mg/Ml 2 Ml Vial) 4 mg IV Q6H PRN PRN Reason: Nausea And Vomiting Stop: 10/10/20 15:05 Pantoprazole Sodium ([facility]antoprazole 40 Mg Tab) [facility] Stop: 10/10/20 06:29 Last Admin: 09/12/20 06:10 Dose: 40 mg Documented by: Polyethylene Glycol (Polyethylene (Miralax) 17 Gm Pack) 17 gm PO DAILY [facility] Stop: 10/09/20 17:37 Last Admin: 09/12/20 08:38 Dose: 17 gm Documented by: Sennosides (Senna 8.6 Mg Tab) 17.2 mg PO [facility] Stop: 10/10/20 20:59 Last Admin: 09/11/20 22:00 Dose: 17.2 mg Documented by: Tramadol HCl (Tramadol Hcl 50 Mg Tablet) 50 - 100 mg PO Q4H PRN PRN Reason: Pain & Pre PT Stop: 10/10/20 15:05 Ursodiol (Ursodiol 300 Mg Cap) 300 mg [facility] [place] Stop: 10/10/20 08:59 Last Admin: 09/12/20 08:37 Dose: 300 mg Documented by: Venlafaxine HCl (Venlafaxine Hcl Xr 75 Mg Capxr) 75 mg PO QAM [facility] Stop: 10/10/20 08:59 Last Admin: 09/12/20 08:38 Dose: 75 mg Documented by:
--- NOTE | 2020-09-12 16:57 | Orthopedic Progress Note ---
Date of Service September 12, 2020 Assessment & Plan (1) Periprosthetic fracture of shoulder: POD 2 - ORIF left periprosthetic humerus fracture Doing well, tolerating regular diet Dressings changed today and reapplied Continue NWB LUE and keep splint and dressings in place. Vitamin D level normal - so continue regular home regimen Allowed for range of motion left hand/fingers as dressings and splint allow Sling left arm for comfort. May be comfortable with head of bed elevated. Ice to left arm as needed for pain or swelling. Elevate left arm above heart to relieve pain/swelling. Patient seen and evaluated by Dr. Allen today also. Okay from ortho standpoint for discharge to home when medically stable. Safe in PT. Patient plans to be discharged home with home health. Follow up with Dr. Allen as scheduled. Admission and Anticipated Discharge Date Admission Date: September 09, 2020 Subjective Patient resting in bed. No complaints of pain left arm with rest. Feels much better today. Has kept the splint and dressings in place. Has some numbness/tingling of left thumb Physical Exam Physical Exam: Dressings and splint removed left upper extremity. Incision clean, dry and intact. Retained tricia. Mild bloody drainage from incision, small effusion left olecranon bursa. tip of thumb is numb, medial, radial, ulnar nerves motor and sensory function intact otherwise. Radial pulse 1+, cap refill brisk. Results & Data ([facility]) Vital Signs (Past 12 Hours) Vital Signs Temp Pulse Resp BP Pulse Ox 09/12/20 15:46 36.8 C 89 16 111/71 96 09/12/20 07:24 36.6 C 88 18 116/76 95 Laboratory Results Lab Results 09/09/20 09/09/20 09/09/20 Range/Units 15:02 15:02 15:02 WBC 11.25 H (4.8-10.8) K/uL RBC 4.67 (4.2-5.4) M/uL Hgb 14.5 (12.0-16.0) g/dL Hct 42.0 (37-47) % MCV 89.9 (80-100) fL MCH 31.0 (25-34) pg MCHC 34.5 (32-36) g/dL RDW Std Deviation 42.5 (36.4-46.3) fL RDW Coeff of Ruma 13.0 (11.5-14.5) % Plt Count 265 (130-400) K/uL MPV 10.2 (7.4-10.4) fL Immature Gran % (Auto) 0.3 % Neut % (Auto) 80.6 % Lymph % (Auto) 11.7 % Barnwell % (Auto) 6.4 % Eos % (Auto) 0.6 % Baso % (Auto) 0.4 % Neut # (Auto) 9.06 H (1.4-6.5) K/uL Lymph # (Auto) 1.32 (1.2-3.4) K/uL Barnwell # (Auto) 0.72 H (0.11-0.59) K/uL Eos # (Auto) 0.07 (0-0.5) K/uL Baso # (Auto) 0.05 (0-0.2) K/uL Immature Gran # (Auto) 0.03 H (0.00-0.02) K/uL PT 10.4 (9.0-12.0) Seconds INR 1.0 (0.9-1.1) APTT 24.6 (21.0-31.0) Seconds PTT Ratio 0.9 Sodium 139 (136-145) mmol/L Potassium 5.2 H (3.5-5.1) mmol/L Chloride 105 (98-107) mmol/L Carbon Dioxide 30 (21-32) mmol/L Anion Gap 4.0 (3-11) BUN 17 (7-18) mg/dl Creatinine 0.56 L (0.6-1.2) mg/dl Est Cr Clr Drug Dosing 69.0 ml/min Est GFR ( Amer) 101.3 Est GFR (Non-Af Amer) 87.4 BUN/Creatinine Ratio 30.4 H (10-20) Glucose 100 H (70-99) mg/dl Calcium 9.5 (8.5-10.1) mg/dl Total Bilirubin 0.5 (0.2-1) mg/dl AST 23 (15-37) U/L ALT 30 (12-78) U/L Alkaline Phosphatase 145 H (45-117) U/L Total Protein 7.2 (6.4-8.2) gm/dl Albumin 3.4 (3.4-5.0) gm/dl Globulin 3.8 (2.5-4.0) gm/dl Albumin/Globulin Ratio 0.9 (0.9-2) 25-OH Vitamin D Total (30-100) ng/ml COVID-19 Eval Order SARS-CoV-2 (PCR) (Negative) Influenza Type A (PCR) (Neg) Influenza Type B (PCR) (Neg) RSV (RT-PCR) (Neg) Blood Type Blood Type Recheck Antibody Screen 09/09/20 09/09/20 09/10/20 Range/Units 15:36 15:36 06:03 WBC 8.61 (4.8-10.8) K/uL RBC 4.23 (4.2-5.4) M/uL Hgb 12.8 (12.0-16.0) g/dL Hct 37.9 (37-47) % MCV 89.6 (80-100) fL MCH 30.3 (25-34) pg MCHC 33.8 (32-36) g/dL RDW Std Deviation 42.7 (36.4-46.3) fL RDW Coeff of Ruma 13.1 (11.5-14.5) % Plt Count 266 (130-400) K/uL MPV 10.3 (7.4-10.4) fL Immature Gran % (Auto) % Neut % (Auto) % Lymph % (Auto) % Barnwell % (Auto) % Eos % (Auto) % Baso % (Auto) % Neut # (Auto) (1.4-6.5) K/uL Lymph # (Auto) (1.2-3.4) K/uL Barnwell # (Auto) (0.11-0.59) K/uL Eos # (Auto) (0-0.5) K/uL Baso # (Auto) (0-0.2) K/uL Immature Gran # (Auto) (0.00-0.02) K/uL PT (9.0-12.0) Seconds INR (0.9-1.1) APTT (21.0-31.0) Seconds PTT Ratio Sodium (136-145) mmol/L Potassium (3.5-5.1) mmol/L Chloride (98-107) mmol/L Carbon Dioxide (21-32) mmol/L Anion Gap (3-11) BUN (7-18) mg/dl Creatinine (0.6-1.2) mg/dl Est Cr Clr Drug Dosing ml/min Est GFR ( Amer) Est GFR (Non-Af Amer) BUN/Creatinine Ratio (10-20) Glucose (70-99) mg/dl Calcium (8.5-10.1) mg/dl Total Bilirubin (0.2-1) mg/dl AST (15-37) U/L ALT (12-78) U/L Alkaline Phosphatase (45-117) U/L Total Protein (6.4-8.2) gm/dl Albumin (3.4-5.0) gm/dl Globulin (2.5-4.0) gm/dl Albumin/Globulin Ratio (0.9-2) 25-OH Vitamin D Total (30-100) ng/ml COVID-19 Eval Order CovFluRsv at [facility] SARS-CoV-2 (PCR) NEGATIVE (Negative) Influenza Type A (PCR) Negative (Neg) Influenza Type B (PCR) Negative (Neg) RSV (RT-PCR) Negative (Neg) Blood Type Blood Type Recheck Antibody Screen 09/10/20 09/10/20 09/10/20 Range/Units 06:03 06:03 07:20 WBC (4.8-10.8) K/uL RBC (4.2-5.4) M/uL Hgb (12.0-16.0) g/dL Hct (37-47) % MCV (80-100) fL MCH (25-34) pg MCHC (32-36) g/dL RDW Std Deviation (36.4-46.3) fL RDW Coeff of Ruma (11.5-14.5) % Plt Count (130-400) K/uL MPV (7.4-10.4) fL Immature Gran % (Auto) % Neut % (Auto) % Lymph % (Auto) % Barnwell % (Auto) % Eos % (Auto) % Baso % (Auto) % Neut # (Auto) (1.4-6.5) K/uL Lymph # (Auto) (1.2-3.4) K/uL Barnwell # (Auto) (0.11-0.59) K/uL Eos # (Auto) (0-0.5) K/uL Baso # (Auto) (0-0.2) K/uL Immature Gran # (Auto) (0.00-0.02) K/uL PT (9.0-12.0) Seconds INR (0.9-1.1) APTT (21.0-31.0) Seconds PTT Ratio Sodium 137 (136-145) mmol/L Potassium 4.1 D (3.5-5.1) mmol/L Chloride 103 (98-107) mmol/L Carbon Dioxide 31 (21-32) mmol/L Anion Gap 3.0 (3-11) BUN 19 H (7-18) mg/dl Creatinine 0.54 L (0.6-1.2) mg/dl Est Cr Clr Drug Dosing 73.3 ml/min Est GFR ( Amer) 102.6 Est GFR (Non-Af Amer) 88.5 BUN/Creatinine Ratio 35.3 H (10-20) Glucose 93 (70-99) mg/dl Calcium 8.9 (8.5-10.1) mg/dl Total Bilirubin 0.7 (0.2-1) mg/dl AST 18 (15-37) U/L ALT 25 (12-78) U/L Alkaline Phosphatase 121 H (45-117) U/L Total Protein 6.2 L (6.4-8.2) gm/dl Albumin 3.0 L (3.4-5.0) gm/dl Globulin 3.2 (2.5-4.0) gm/dl Albumin/Globulin Ratio 0.9 (0.9-2) 25-OH Vitamin D Total (30-100) ng/ml COVID-19 Eval Order SARS-CoV-2 (PCR) (Negative) Influenza Type A (PCR) (Neg) Influenza Type B (PCR) (Neg) RSV (RT-PCR) (Neg) Blood Type A Negative Blood Type Recheck A Negative Antibody Screen NEGATIVE 09/11/20 09/11/20 09/11/20 Range/Units 05:45 05:45 11:23 WBC 14.45 H (4.8-10.8) K/uL RBC 3.60 L (4.2-5.4) M/uL Hgb 11.1 L (12.0-16.0) g/dL Hct 32.1 L (37-47) % MCV 89.2 (80-100) fL MCH 30.8 (25-34) pg MCHC 34.6 (32-36) g/dL RDW Std Deviation 43.1 (36.4-46.3) fL RDW Coeff of Ruma 13.2 (11.5-14.5) % Plt Count 270 (130-400) K/uL MPV 10.7 H (7.4-10.4) fL Immature Gran % (Auto) 0.1 % Neut % (Auto) 77.2 % Lymph % (Auto) 8.2 % Barnwell % (Auto) 14.4 % Eos % (Auto) 0.0 % Baso % (Auto) 0.1 % Neut # (Auto) 11.15 H (1.4-6.5) K/uL Lymph # (Auto) 1.19 L (1.2-3.4) K/uL Barnwell # (Auto) 2.08 H (0.11-0.59) K/uL Eos # (Auto) 0.00 (0-0.5) K/uL Baso # (Auto) 0.01 (0-0.2) K/uL Immature Gran # (Auto) 0.02 (0.00-0.02) K/uL PT (9.0-12.0) Seconds INR (0.9-1.1) APTT (21.0-31.0) Seconds PTT Ratio Sodium 135 L (136-145) mmol/L Potassium 4.4 (3.5-5.1) mmol/L Chloride 103 (98-107) mmol/L Carbon Dioxide 27 (21-32) mmol/L Anion Gap 5.0 (3-11) BUN 21 H (7-18) mg/dl Creatinine 0.58 L (0.6-1.2) mg/dl Est Cr Clr Drug Dosing 68.3 ml/min Est GFR ( Amer) 100.2 Est GFR (Non-Af Amer) 86.4 BUN/Creatinine Ratio 36.8 H (10-20) Glucose 102 H (70-99) mg/dl Calcium 8.5 (8.5-10.1) mg/dl Total Bilirubin 0.7 (0.2-1) mg/dl AST 32 (15-37) U/L ALT 24 (12-78) U/L Alkaline Phosphatase 99 (45-117) U/L Total Protein 5.9 L (6.4-8.2) gm/dl Albumin 2.7 L (3.4-5.0) gm/dl Globulin 3.2 (2.5-4.0) gm/dl Albumin/Globulin Ratio 0.8 L (0.9-2) 25-OH Vitamin D Total 45.6 (30-100) ng/ml COVID-19 Eval Order SARS-CoV-2 (PCR) (Negative) Influenza Type A (PCR) (Neg) Influenza Type B (PCR) (Neg) RSV (RT-PCR) (Neg) Blood Type Blood Type Recheck Antibody Screen 09/12/20 09/12/20 Range/Units 05:38 05:38 WBC 11.99 H (4.8-10.8) K/uL RBC 3.43 L (4.2-5.4) M/uL Hgb 10.4 L (12.0-16.0) g/dL Hct 30.4 L (37-47) % MCV 88.6 (80-100) fL MCH 30.3 (25-34) pg MCHC 34.2 (32-36) g/dL RDW Std Deviation 43.7 (36.4-46.3) fL RDW Coeff of Ruma 13.4 (11.5-14.5) % Plt Count 251 (130-400) K/uL MPV 10.5 H (7.4-10.4) fL Immature Gran % (Auto) 0.2 % Neut % (Auto) 65.4 % Lymph % (Auto) 19.7 % Barnwell % (Auto) 13.8 % Eos % (Auto) 0.6 % Baso % (Auto) 0.3 % Neut # (Auto) 7.85 H (1.4-6.5) K/uL Lymph # (Auto) 2.36 (1.2-3.4) K/uL Barnwell # (Auto) 1.65 H (0.11-0.59) K/uL Eos # (Auto) 0.07 (0-0.5) K/uL Baso # (Auto) 0.04 (0-0.2) K/uL Immature Gran # (Auto) 0.02 (0.00-0.02) K/uL PT (9.0-12.0) Seconds INR (0.9-1.1) APTT (21.0-31.0) Seconds PTT Ratio Sodium 136 (136-145) mmol/L Potassium 3.9 (3.5-5.1) mmol/L Chloride 104 (98-107) mmol/L Carbon Dioxide 28 (21-32) mmol/L Anion Gap 4.0 (3-11) BUN 28 H (7-18) mg/dl Creatinine 0.64 (0.6-1.2) mg/dl Est Cr Clr Drug Dosing 61.9 ml/min Est GFR ( Amer) 97.0 Est GFR (Non-Af Amer) 83.7 BUN/Creatinine Ratio 43.5 H (10-20) Glucose 92 (70-99) mg/dl Calcium 9.0 (8.5-10.1) mg/dl Total Bilirubin 0.6 (0.2-1) mg/dl AST 45 H (15-37) U/L ALT 26 (12-78) U/L Alkaline Phosphatase 113 (45-117) U/L Total Protein 5.8 L (6.4-8.2) gm/dl Albumin 2.7 L (3.4-5.0) gm/dl Globulin 3.1 (2.5-4.0) gm/dl Albumin/Globulin Ratio 0.9 (0.9-2) 25-OH Vitamin D Total (30-100) ng/ml COVID-19 Eval Order SARS-CoV-2 (PCR) (Negative) Influenza Type A (PCR) (Neg) Influenza Type B (PCR) (Neg) RSV (RT-PCR) (Neg) Blood Type Blood Type Recheck Antibody Screen
--- NOTE | 2020-09-12 18:32 | Discharge Summary ---
Date of Service September 12, 2020 Admission HPI Per Admitting Provider This is an 79-year-old female with PMHx of hypertension, hyperlipidemia, history of paroxysmal SVT, status post mitral valve repair, Ruiz syndrome, osteoporosis, adjustment disorder with depressed mood, and GERD who presents after acute injury sustained earlier today. She reports that she was attempting to remove a flower on a christian, alter this morning at [facility], and that she had gotten up on a step to reach it, however then forgot that she was up and proceeded to walk, falling off the step and onto her left elbow, and also cut her upper lip. Her pain is currently rated a 10 out of 10 at bedside. She is holding her left arm and it does appear to be swollen above the elbow. She has difficulty moving her fingers due to pain. She denies any decreased sensation to light touch or numbness in distal extremity. Patient denies any history of falls prior to this event. Does not typically use assistive devices when walking. Her , Ryan is at bedside and supports the history. Imaging reveals left distal humerus fracture. She previously had her left shoulder replaced by Dr. Best years ago. Admission Exam Per Admitting Provider Physical Exam: General: awake, alert, mild distress, slightly anxious Head: Normocephalic, atraumatic ENT: PERRL, EOMI, no pharyngeal exudate, mucous membranes moist, + lesion about 1 cm in length on upper lip, does not cross the kadeem border, teeth intact, no injury, no cut underneath the upper lip. Chest: Clear to auscultation, on room air, no adventitious breath sounds Cardiac: Regular rate and rhythm, + slight systolic murmur, no JVD, normal peripheral pulses, good capillary refill Abdominal: NABS x 4 quadrants, soft, nondistended, nontender to palpation, no rebound or guarding Extremities: LUE layed across chest, pain with movement, able to move fingers, edema proximal to the elbow, no ecchymosis, no open areas of skin. Otherwise normal inspection, no peripheral edema or erythema, calfs nontender to palpation Psych: Anxious mood and affect Neuro: AAO x 3, strength intact bilaterally and rated 5/5, no motor deficits, speech is clear, no peripheral sensory deficits Principal Diagnosis Periprosthetic fracture of left shoulder, status post ORIF, hypertension, status post mitral valve repair, biliary cirrhosis Discharge Exam Constitutional + ill appearing and average body habitus Eyes PERRL, conjunctivae normal, anicteric sclerae ENMT external ear and nose normal, oropharynx normal Neck trachea midline, no thyromegaly Respiratory no respiratory distress Auscultation: lungs clear to auscultation bilaterally Cardiovascular Rate/Rhythm: regular rate and regular rhythm Heart Sounds: + murmur (2/6 ejection systolic murmur over precordium) Extremities: no edema Gastrointestinal (Abdomen) Inspection/Auscultation: normal bowel sounds; abdomen not distended Percussion/Palpation: abdomen soft; abdomen nontender Psychiatric A+Ox3, euthymic affect Lymphatic no cervical or axillary lymphadenopathy Discharge Data Allergies Allergy/AdvReac Type Severity Reaction Status Date / Time acetaminophen Allergy Mild HAS TAKEN Verified 09/09/20 13:53 LORTAB AT HOME Nitrate Analogues Allergy Mild Verified 06/30/09 02:29 nitrofurantoin Allergy Mild Verified 06/30/09 02:29 oxycodone Allergy Mild HAS TAKEN Verified 09/09/20 13:53 LORTAB AT HOME amiodarone AdvReac Intermediate intolerant Unverified 09/09/20 13:53 Consultations 09/09/20 14:54 ED Decision to Admit Stat 09/09/20 17:38 Consult Orthopedic Surgery Routine Procedures Performed Operation Date: 09/10/20 10:00 Actual Procedures p Open reduction internal fixation Left Periprosthetic Humerus Fracture(Left) - Booker Allen MD Ordered Studies 09/10/20 FL humerus LT 2V Routine 09/10/20 07:08 US - OR guided needle placemen Routine Hospital Course (1) Periprosthetic fracture of shoulder: -Consult Ortho, Dr. Allen -Pain control and bowel regimen ordered -PT/OT consults -Allow diet tonight, n.p.o. after midnight except sips and chips with meds -History of previous left shoulder replacement done by Dr. Arceo years ago -Status post left shoulder ORIF on 09/10/2020 -Complains some pain at the left shoulder joint but no other significant symptoms -Minimal pain at rest -Awaiting Ortho evaluation today and possible discharge following that -Likely to need home health services on discharge Medical Clearance: She does not have any cardiac symptoms Has had a negative Stress ECHO in March in 2019 (2) Hypertension: -Continue losartan 50 mg daily, metoprolol succinate 75 mg bid, Lasix 20 mg daily -Blood pressure is lower limit of normal (3) Dyslipidemia: -Continue atorvastatin 10 mg to (4) Paroxysmal SVT (supraventricular tachycardia): -History of atrial tachycardia controlled with infrequent palpitations per Dr. House -Had normal coronary anatomy by left heart cath in 2012 -Heart rate is controlled (5) S/P mitral valve repair: -Done November 2012 -Follows with Dr. Gr with cardiology as outpatient -Continue Lasix 20 mg daily -Heart healthy diet -Blood pressure elevated likely secondary to pain and anxiety currently, monitor -No cardiac symptoms (6) Biliary cirrhosis: (7) Adjustment disorder with depressed mood: (8) DVT prophylaxis: Will be given aspirin on discharge Likely discharge this afternoon Total Time Total Time Spent Total Time Spent (In Minutes): 40 minutes Total Time Includes: Examination of the Patient, Discharge Planning, Medication Reconciliation and Communication With Other Providers Discharge Plan Discharge Items Patient Disposition: Home - Home Health Services Reason For Visit: L HUMERUS FRACTURE Discharge Diagnosis: Periprosthetic fracture of left shoulder, status post ORIF, hypertension, status post mitral valve repair, biliary cirrhosis Activity: Resume your previous activity Non-emergency contact: Primary Care Provider Call non-emergency contact if: you have any medication questions and your symptoms worsen Follow-up/Referrals: Booker Allen MD [Surgeon] - 09/26/20 12:00 pm Erick Schmidt DO [Primary Care Provider] - (Date & Time 09/18/2020 2:00 PM Provider Erick Schmidt DO Department [facility] ) Diet: Heart Healthy and Low Sodium (2gm) Addtl Attending Provider Instructions: Please take extreme precaution to avoid fall Please keep appointments with your primary care provider and the specialist Take medications as directed Addtl Ice Cream Maker Provider Instructions: Non weight bearing left arm Allowed for range of motion left hand/fingers as tolerated. Keep dressings on left arm, Keep clean and dry. Keep splint on at all times. Sling left arm at all times, may remove for range of motion exercises Aspirin 325 mg twice daily for DVT prophylaxis Ice to left arm as needed for pain and/or swelling. Allowed for full range of motion to fingers left hand. May be comfortable with head of bed elevated to sleep. Follow up as scheduled with Dr. Allen Pending Studies at Discharge: No Stand-Alone Forms: [facility], Opioid Pain Management, Smoking Cessation Medications and DC Order Prescriptions: New hydrocodone-acetaminophen 5-300 mg tablet 1 tab PO BID PRN (Reason: pain) Qty: 10 RF: 0 aspirin 81 mg tablet,chewable 162 mg PO BID Qty: 60 RF: 0 ergocalciferol (vitamin D2) [Vitamin D2] 1,250 mcg (50,000 unit) capsule 50,000 unit PO .weekly Qty: 5 RF: 0 Continued multivitamin Tablet 1 tab PO QAM RF: 0 losartan 50 mg tablet 50 mg PO QAM RF: 0 atorvastatin 10 mg tablet 10 mg PO HS RF: 0 metoprolol succinate 50 mg tablet extended release 24 hr 50 mg PO BID RF: 0 furosemide 20 mg tablet 20 mg PO QAM RF: 0 cholecalciferol (vitamin D3) [Vitamin D3] 25 mcg (1,000 unit) Tablet 0 mcg PO QAM RF: 0 Caltrate 600 plus D 600 mg (1,500 mg)-800 unit Tablet,Chewable 1 tab PO QAM RF: 0 venlafaxine 75 mg capsule,extended release 24hr 75 mg PO QAM RF: 0 ursodiol 300 mg capsule 300 mg PO QAM RF: 0 omeprazole 20 mg capsule,delayed release(DR/EC) 20 mg PO DAILYBB RF: 0 metoprolol succinate 25 mg tablet extended release 24 hr 25 mg PO BID RF: 0 Discontinued ascorbic acid (vitamin C) [Vitamin C] 1,000 mg Tablet 0 mg PO QAM RF: 0 Discharge Orders: Discharge Order (Routine); Ordered 09/12/20 Ordered By: Claudia Art/Other Patient Handouts: DVT Post Op Prevention Admission Data Admit Date/Time: 09/09/20 16:38 Attending Provider: Claudia Castillo Admit Provider: Claudia Castillo Primary Care Provider: Erick Shcmidt Other Providers: Claudia Castillo ; Booker Allen ; [facility] Other Interventions: Discharge Summary Assessment (RN) Last Done: 09/12/20 17:42
--- NOTE | 2020-09-22 09:47 | Coding Query ---
To promote full compliance with coding requirements relating to patient care, physician participation is requested in all cases of experimental assembler uncertainty. Please assist us with the question(s) below: Coding Question(s): It was noted throughout the record that the patient has/is suspected to have osteoporosis. According to coding guidelines "a code for osteoporotic fracture, and not a traumatic fracture, should be used for any patient with known osteoporosis who suffers a fracture, even if the patient had a minor fall or trauma, if that fall or trauma would not usually break a normal, healthy bone." Please indicate below the type of fracture: Physician's Response(s): ( ) Osteoporotic fracture of Left Humerus ( + ) Traumatic fracture of Left Humerus--History of fall with periprosthetic fracture ( ) Other, please specify ( ) Unable to be determined MTDD
== END 2020-09-12 18:35 | disposition home health service (06) | DRG 493 ==
LOC: ED 12:32 → 3W 16:38

== ENCOUNTER 2024-11-03 14:43 | Inpatient (IN) ==
--- NOTE | 2024-11-03 15:21 | Emergency Department Note ---
Impression & Plan TIA (transient ischemic attack), Artery disease, cerebral ED Provider Note NAME: ZULMA ELI AGE: 84 SEX: F : 1940 ARRIVES VIA: Ambulance INFORMANT: Patient, EMS, the patient's significant other and friend ED PROVIDER(S): Kaleb Odom DO CHIEF COMPLAINT: Altered mental status HPI: The patient is an 84-year-old female who presented to the emergency department by ambulance for an evaluation of altered mental status. The patient had an episode while she was shopping with a friend. She was walking through [employer]. She had an episode where she became lethargic. Reportedly the patient had a headache and was weak on the right side. There was no reported trauma. There was no reported fever or vomiting. The patient states that this time she feels though she is in her usual state of health. The patient denies having any history of stroke. She does not take blood thinners. She does have a history of mitral valve repair. ROS: See above HPI for pertinent positives & negatives. A total of 10 systems reviewed and were otherwise negative. PAST MEDICAL HISTORY: See Below PAST SURGICAL HISTORY: See Below FAMILY HISTORY: See Below SOCIAL HISTORY: See Below HOME MEDICATIONS: See Below ALLERGIES: See Below VITALS: See Below PHYSICAL EXAMINATION: GENERAL: The patient is awake and alert. The patient is somewhat listless but responds appropriately. EYES: The conjunctivae are clear. The pupils are round and reactive. EARS, NOSE, MOUTH AND THROAT: The nose is without any evidence of any deformity. NECK: The neck is nontender and supple. RESPIRATORY: Normal respiratory effort is noted there is no evidence of wheezing rhonchi or rales CARDIOVASCULAR: Regular rate and rhythm noted there no murmurs rubs or gallops normal S1 normal S2. GASTROINTESTINAL: The abdomen is soft. Abdomen is nontender. MUSCULOSKELETAL/EXTREMITIES: There is no evidence of gross deformity full range of motion is noted in the hips and shoulders. SKIN: There is no obvious evidence of any rash. There are no petechiae, pallor or cyanosis noted. NEUROLOGIC: The patient is awake to verbal commands. The patient is slow to answer questions but answers appropriately. Speech was understandable. Analytics Senior Manager strength was symmetric in both hands. There was no facial droop. The patient is able to hold each leg off of the bed for greater than 5 seconds. According to the family members the patient is at her baseline at this time. MEDICAL DECISION MAKING: The patient is an 84-year-old female who presented to the emergency department by ambulance for an evaluation of strokelike symptoms. The patient was found to have no neurologic deficits upon arrival to the emergency department. Her friend who was with her at the time does give a description of a possible TIA. I discussed the patient's laboratory and radiographic studies with her. Given her findings on CT angiography it is possible that this represents a true TIA. Given her past medical history as well as her comorbidities I do feel the patient would be a better candidate for inpatient management. I discussed her condition with the on-call [facility] hospitalist. They have agreed to evaluate the patient in the emergency department. The patient was not made a stroke alert upon arrival as her symptoms had resolved when I evaluated the patient. She does appear to have an occlusion in one of her cerebral arteries however I doubt that this is acute given the patient's neurologic exam at this time. I do not feel that she would be a candidate for mechanical thrombectomy given the patient's presentation. Triage Nursing notes reviewed. Prior medical records reviewed Vital Signs: reviewed and remarkable for no significant abnormalities Differential diagnosis: Infection, hypoglycemia, electrolyte abnormalities, overdose, toxicologic, cardiac sources, intracerebral event, neurologic, trauma, as well as other pathologies. ER treatment provided: See below Diagnostics interpreted by me: ECG: EKG was obtained in the emergency department. My interpretation is normal sinus rhythm at 68 bpm. There is no acute ST segment abnormalities noted. There is no ectopy. This was compared to a tracing from September 09, 2020. No changes were noted. Cardiac Monitoring: An order was placed for continuous cardiac monitoring. The monitor shows a rate of 66 bpm with sinus rhythm. Laboratory studies: As stated above and show below. Imaging studies: See below. Radiographic imaging was reviewed by myself Consultation(s): I discussed this case with Linh who is on-call for the [facility]ist group. 1954: I was notified about the patient's MRI by the radiologist. She does appear to have a subacute stroke. This does fit with the area of the anterior cerebral artery occlusion. She still has no focal neurologic deficits and appears to be at her baseline. I did notify Dr. Johnson about the patient's MRI. Past Med/Surg History Problem List Stroke-like symptoms Artery disease, cerebral (Acute) TIA (transient ischemic attack) (Acute) Malignant neoplasm of upper-outer quadrant of left breast in female, estrogen receptor negative (Chronic 02/26/23) Fracture, humerus closed (Acute) Dyslipidemia Biliary cirrhosis Ruiz's syndrome Encounter for pre-operative examination DVT prophylaxis Adjustment disorder with depressed mood S/P mitral valve repair Periprosthetic fracture of shoulder Hypertension Medical History Bunion, left foot Bunion, right Hx of coronary angiogram with left heart cath; 12/11/2012 Surgical History History of left shoulder replacement H/O mitral valve repair 11/23/2012 H/O left breast biopsy 02/26/23 S/P lumpectomy, left breast 04/23/23 Dr. Shantelle Reza; Left breast lumpectomy with preoperative localization and left axillary sentinel lymph node biopsy with injection of lymphazurin blue dye for sln mapping Family History Mother Colon cancer Father , L[facility] to [facility]; Hypertension Sister Liver transplant recipient Brother Lung cancer Brother No problems noted. 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 [employer] How many Children do You have: 3 Feels Safe at Home: Yes Childhood Exposure to Second-Hand Smoke: No Assistive Devices: Brace/Splint/Immobilizer Allergies Allergies Allergy/AdvReac Type Severity Reaction Status Date / Time Nitrate Analogues Allergy Mild Verified 11/03/24 16:58 nitrofurantoin Allergy Mild Verified 11/03/24 16:58 oxycodone Allergy Mild Hives Verified 11/03/24 16:58 amiodarone AdvReac Intermediate intolerant Unverified 11/03/24 16:58 ibuprofen AdvReac Mild Verified 11/03/24 16:58 Home Meds Home Medications Medication Instructions Recorded Confirmed atorvastatin 10 mg tablet 10 mg PO HS 09/09/20 11/03/24 calcium 600 mg (as carbonate)-vit 1 tab PO QAM 09/09/20 11/03/24 D3 20 mcg (800 unit) chewable tablet (Caltrate plus D) cholecalciferol (vitamin D3) 25 25 mcg PO QAM 09/09/20 11/03/24 mcg (1,000 unit) tablet (Vitamin D3) furosemide 20 mg tablet 20 mg PO QAM 09/09/20 11/03/24 losartan 50 mg tablet 50 mg PO QAM 09/09/20 11/03/24 metoprolol succinate 25 mg 25 mg PO BID 09/09/20 11/03/24 tablet,extended release 24 hr metoprolol succinate 50 mg 50 mg PO BID 09/09/20 11/03/24 tablet,extended release 24 hr multivitamin 1 tab PO QAM 09/09/20 11/03/24 ursodiol 300 mg capsule 300 mg PO QAM 09/09/20 11/03/24 diphenhydramine 25 1 tab PO HS 10/17/23 11/03/24 mg-acetaminophen 500 mg tablet (Tylenol PM Extra Strength) tamoxifen 20 mg tablet 20 mg PO DAILY 10/17/23 11/03/24 mecobalamin (vitamin B12) 1,000 1,000 mcg PO DAILY 04/30/24 11/03/24 mcg chewable tablet ascorbic acid (vitamin C) 500 mg 500 mg PO DAILY 11/03/24 11/03/24 tablet (Vitamin C) venlafaxine 150 mg 150 mg PO QAM 11/03/24 11/03/24 capsule,extended release 24 hr Results & Data (ED) Vital Signs Vital Signs - 24 hr 11/03/24 14:50 11/03/24 15:00 11/03/24 15:00 Temperature 36.6 C Temperature Source Oral Pulse Rate 73 69 Pulse Rate from SpO2 Sensor 68 Respiratory Rate 18 12 Blood Pressure 121/95 126/59 L Blood Pressure Mean 103 76 Pulse Oximetry 100 99 Oxygen Delivery Method Room Air Sepsis Recent Fever Within 48 Hours No Sepsis New/Unexplained Change in Mental Status Yes Sepsis Action Taken by Nursing No Action Required 11/03/24 15:45 11/03/24 15:51 11/03/24 16:00 Temperature Temperature Source Pulse Rate 67 66 66 Pulse Rate from SpO2 Sensor 66 67 Respiratory Rate 28 H 19 Blood Pressure Blood Pressure Mean Pulse Oximetry 98 92 Oxygen Delivery Method Sepsis Recent Fever Within 48 Hours Sepsis New/Unexplained Change in Mental Status Sepsis Action Taken by Nursing 11/03/24 16:00 11/03/24 16:00 11/03/24 16:15 Temperature Temperature Source Pulse Rate 67 Pulse Rate from SpO2 Sensor 67 Respiratory Rate 14 Blood Pressure 147/91 H 147/91 H Blood Pressure Mean 104 104 Pulse Oximetry 100 Oxygen Delivery Method Sepsis Recent Fever Within 48 Hours Sepsis New/Unexplained Change in Mental Status Sepsis Action Taken by Nursing 11/03/24 16:30 11/03/24 16:36 11/03/24 16:39 Temperature Temperature Source Pulse Rate 66 69 Pulse Rate from SpO2 Sensor 66 68 Respiratory Rate 23 18 Blood Pressure 131/72 Blood Pressure Mean 93 Pulse Oximetry 99 88 L Oxygen Delivery Method Sepsis Recent Fever Within 48 Hours Sepsis New/Unexplained Change in Mental Status Sepsis Action Taken by Nursing 11/03/24 17:01 11/03/24 17:01 11/03/24 17:01 Temperature Temperature Source Pulse Rate Pulse Rate from SpO2 Sensor Respiratory Rate Blood Pressure 150/76 H 150/76 H 150/76 H Blood Pressure Mean 101 101 101 Pulse Oximetry Oxygen Delivery Method Sepsis Recent Fever Within 48 Hours Sepsis New/Unexplained Change in Mental Status Sepsis Action Taken by Nursing 11/03/24 17:01 11/03/24 17:03 11/03/24 17:27 Temperature Temperature Source Pulse Rate 69 68 Pulse Rate from SpO2 Sensor 69 68 Respiratory Rate 25 H 19 Blood Pressure 150/76 H Blood Pressure Mean 101 Pulse Oximetry 88 L 99 Oxygen Delivery Method Sepsis Recent Fever Within 48 Hours Sepsis New/Unexplained Change in Mental Status Sepsis Action Taken by Assisted Medications Current Medication List: was personally reviewed by me Laboratory Data Attestation: I reviewed the patient's lab results. 11/03/24 14:23 11/03/24 14:23 Lab Results 11/03/24 11/03/24 Range/Units 14:23 15:21 WBC 6.46 (4.8-10.8) K/ul RBC 4.01 L (4.20-5.40) M/uL Hgb 12.5 (12.0-16.0) g/dl POC Hgb 11.9 L (12.0-16.0) g/dl Hct 38.2 (37.0-47.0) % POC Hct 35 L (37-47) % MCV 95.3 (80.0-100.0) fL MCH 31.2 (25.0-34.0) pg MCHC 32.7 (32.0-36.0) g/dL RDW Std Deviation 45.7 (36.4-46.3) fL RDW Coeff of Ruma 13.1 (11.5-14.5) % Plt Count 199 (130-400) K/uL MPV 11.3 (9.4-12.4) fL Immature Gran % (Auto) 0.3 % Neut % (Auto) 63.3 % Lymph % (Auto) 21.8 % [place] % (Auto) 12.1 % Eos % (Auto) 1.4 % Baso % (Auto) 1.1 % Neut # (Auto) 4.09 (1.40-6.50) K/uL Lymph # (Auto) 1.41 (1.20-3.40) K/uL [place] # (Auto) 0.78 H (0.11-0.59) K/uL Eos # (Auto) 0.09 (0.00-0.50) K/uL Baso # (Auto) 0.07 (0.00-0.20) K/uL Immature Gran # (Auto) 0.02 (0.01-0.20) K/uL PT 11.3 (9.0-12.0) Seconds INR 1.0 (0.9-1.1) APTT 25 (21-31) Seconds PTT Ratio 0.9 POC Sodium 139 (135-144) mmol/L Sodium 142 (136-145) mmol/L POC Potassium 4.3 (3.3-5.0) mmol/L Potassium 3.7 (3.5-5.1) mmol/L POC Chloride 102 (101-112) mmol/L Chloride 104 (98-107) mmol/L Carbon Dioxide 31 (21-32) mmol/L POC Total CO2 29 (24-31) mmol/L Anion Gap 7 (3-11) POC Anion Gap 14.0 L (16-25) mmol/L POC BUN 31 H (7-18) mg/dl BUN 25 H (6-23) mg/dl Creatinine 0.69 (0.6-1.2) mg/dl POC Creatinine 0.8 (0.6-1.3) mg/dl Est Cr Clr Drug Dosing 47.4 ml/min eGFR 84.47 BUN/Creatinine Ratio 36.2 H (10-20) Glucose 116 H (70-99(Fasting)) mg/dl POC Glucose (other) 129 H (70-99) mg/dl Calcium 9.5 (8.6-10.3) mg/dl POC Ioniz Calcium Glen 1.12 (1.12-1.32) mmol/l Magnesium 1.9 (1.7-2.4) mg/dl Total Bilirubin 0.5 (0.2-1.0) mg/dl AST 27 (13-39) U/L ALT 17 (7-52) U/L Alkaline Phosphatase 64 (34-104) U/L Troponin I High Sens 6.6 (0-14) pg/ml Total Protein 6.5 (6.0-8.3) gm/dl Albumin 4.2 (3.4-5.0) gm/dl Globulin 2.3 L (2.5-4.0) gm/dl Albumin/Globulin Ratio 1.8 (0.9-2) Administered Medications Discontinued Medications Aspirin (Aspirin 81 Mg Ectab) 81 mg PO NOW STA Stop: 11/03/24 17:20 Last Admin: 11/03/24 17:26 Dose: 81 mg Documented By: JUAN FRANCISCO Clopidogrel Bisulfate (Clopidogrel Bisulfate 300 Mg Tab) 300 mg PO NOW STA Stop: 11/03/24 17:20 Last Admin: 11/03/24 17:26 Dose: 300 mg Documented By: JUAN FRANCISCO Ioversol (Optiray 320 125ml) 115 ml IV ONCE ONE Stop: 11/03/24 15:38 Last Admin: 11/03/24 15:37 Dose: 115 ml Documented By: MIHCELL Imaging Data Attestation: I personally reviewed and interpreted this imaging study as follows: My Impression: CT of the brain was obtained in the emergency department. My interpretation is no intracranial hemorrhage or mass effect was noted, final report below. Radiologist's Impression: Chest X-Ray 11/03/24 15:05 Chest radiograph, one view History: Stroke alert Comparison: 04/10/2023 Findings: Single AP view of the chest performed. No focal consolidation or pleural effusion. No pneumothorax. The heart appears enlarged. Mitral valve annuloplasty. The pulmonary vascularity appears slightly indistinct. There is some subtle perihilar opacity at the left lower lung. No visualized bony or soft tissue abnormality. Left shoulder arthroplasty, with fixating plate and screw of the left humerus. Impression: Findings suggestive of mild pulmonary edema Electronically signed by Myron Schmidt 11-03-2024 4:[address] 11/03/24 15:05 CT SCAN OF THE BRAIN WITHOUT IV CONTRAST CLINICAL HISTORY: Sudden onset weakness. COMPARISON STUDY: TECHNIQUE: Unenhanced axial CT scan of the brain was performed from the vertex to the skull base. A dose lowering technique was utilized adhering to the principles of ALARA. CT DOSE: 974.41 mGy.cm FINDINGS: Brain parenchyma: No acute intracranial hemorrhage, midline shift or mass effect is present. Sutton-white matter differentiation is preserved. There are no extra- axial fluid collections. There are no findings to suggest acute dural sinus thrombosis or acute territorial infarct. Moderate atrophy is noted. Mild white matter hypodensity suggests small vessel disease. Ventricles, sulci, cisterns: There is no hydrocephalus. The basal cisterns are patent. Calvarium: Unremarkable. Sinuses and mastoids: The visualized paranasal sinuses are clear. The mastoid air cells are well pneumatized. Orbits: The bony orbits are grossly intact. IMPRESSION: No acute intracranial findings. ACT 112: Negative or not required by law. Electronically signed by: Kenan Mckenna M.D. 11/03/2024 3:56 PM Head CTA 11/03/24 15:05 CT angio head w con CLINICAL HISTORY: 84 years-old Female with neuro deficit, acute stroke suspected. Acute strokelike symptoms COMPARISON STUDY: Head CT same day TECHNIQUE: Following the IV administration of 115 cc of Optiray, CT angiogram of the brain was performed from the skull base to the vertex. Images are reviewed in the axial, sagittal, and coronal planes. 3-D MIPS images are created and assessed. IV contrast was administered without complication. All measurements were obtained according to NASCET criteria. A dose lowering technique was utilized adhering to the principles of ALARA. FINDINGS: CT BRAIN: Dictated separately CT ANGIOGRAM OF THE BRAIN: The imaged bilateral internal carotid arteries are patent. Middle cerebral arteries are patent. There is occlusion noted involving the mid aspect of the left A2 segment of the anterior cerebral artery on image 127 series 6 with reconstitution of flow seen within the more distal branches. This is technically age indeterminate. The vertebrobasilar system and posterior cerebral arteries are widely patent. There is no aneurysm, high-grade stenosis, or proximal branch occlusion identified. Dural sinuses appear patent. IMPRESSION: 1. 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 2. Otherwise unremarkable CTA of the head. ACT 112: Negative or not required by law. The above report was generated using voice recognition software. It may contain grammatical, syntax or spelling errors. Electronically signed by: Nura Calderon M.D. 11/03/2024 3:58 PM Neck CTA 11/03/24 15:05 CT angio neck with con CLINICAL HISTORY: neuro deficit, acute stroke suspected. COMPARISON STUDY: None TECHNIQUE: Following the IV administration of 115 of Optiray, CT angiogram of the neck was performed from the aortic arch to the skull base. Images are reviewed in the axial, sagittal, and coronal planes. 3-D MIPS images are created and assessed. IV contrast was administered without complication. All measurements were calculated based on NASCET criteria. A dose lowering technique was utilized adhering to the principles of ALARA. CT DOSE: 974 FINDINGS: There are mild carotid bulb calcifications. No significant narrowing or occlusion seen at the common or internal carotid arteries bilaterally or the vertebral arteries bilaterally. There are diffuse degenerative changes of the cervical spine. IMPRESSION: No significant arterial narrowing or occlusion seen at the neck. ACT 112: Negative or not required by law. The above report was generated using voice recognition software. It may contain grammatical, syntax or spelling errors. Electronically signed by: Javier Sanchez M.D. 11/03/2024 3:54 PM Brain MRI 11/03/24 16:53 EXAM: MR brain wo con CLINICAL HISTORY: Stroke r/o, L anterior cerebral artery occlusion TECHNIQUE: Different pulse sequences were performed in different planes without GD-DTPA injection for the brain. Images were sent through PACs for interpretation. COMPARISON: None. FINDINGS: Hyperacute infarction is seen at the medial aspect of the left frontal lobe with brief extension to the left aspect of the genu of the corpus callosum within the territory of the left anterior cerebral arteries, exhibiting bright signals on DWI and dark signals on ADC map, not detectable on T2 and FLAIR WI. Flow signals of the left, anterior cerebral artery are not appreciated. Chronic infarctions with microcystic gliosis are seen at the right periventricular region and cerebellar hemispheres, more on the right side. These follow CSF signals on different pulse sequences. Blooming signals are seen on T2*WI at the right periventricular region, suggesting a hemosiderin deposition/calcification. Altered deep white matter signals are seen at the pontine isthmus, forceps minor, forceps major, periventricular, and centrum semiovale regions. These exhibit bright signals on T2 and FLAIR WI, and intermediate signals on T1 WI. Findings suggest consequences of small vessel disease, e.g., hypertensive and/or diabetic vasculopathy. Age-appropriate degenerative involutional changes are denoted by symmetrical dilatation of the ventricular system, prominent cortical sulci, sylvian fissures, cerebellar, vermian folia, and basal cisterns. Normal MRI appearance of the deep white matter and central sutton matter aggregates. Normal size and configuration of the cerebral ventricles. Normal MRI appearance of the petrous temporal bones, vestibule cochlear nerves, and cerebellopontine angles with no definite masses. No shift of midline structures. No intracerebral or extra-axial hematomas or masses. Normal MRI appearance of orbital structures, both globes, optic nerves, optic chiasm, optic tracts and optic radiations. The scanned paranasal sinuses are unremarkable. Bilateral cataract surgery. IMPRESSION: 1. Hyperacute infarction is seen at the medial aspect of the left frontal lobe with brief extension to the left aspect of the genu of the corpus callosum within the territory of the left anterior cerebral arteries, exhibiting bright signals on DWI and dark signals on ADC map, not detectable on T2 and FLAIR WI. Flow signals of the left, anterior cerebral artery are not appreciated. 2. Chronic infarctions with microcystic gliosis are seen at the right periventricular region and cerebellar hemispheres, more on the right side. 3. Imaging features consistent with the consequences of small vessel disease, e.g., hypertensive and/or diabetic vasculopathy. ([place] 2). Blooming signals are seen on T2*WI at the right periventricular region, suggesting a hemosiderin deposition/calcification. 4. Age-appropriate degenerative involutional changes. 5. Follow-up is recommended as appropriate. [facility] ER was called at at 06:41 PM TABLE SETTER, 11/03/[address] Odom was informed regarding the presence of Critical Medical Findings in this report. Electronically signed by Miguelangel Rice 11-03-2024 7:46 PM Discharge Plan Visit Data Chief Complaint: Lethargic Stated Complaint: AMS, NO RESPONDING ED Provider: Kaleb Odom Discharge Problem: TIA (transient ischemic attack), Artery disease, cerebral Patient Disposition: Being Evaluated by Hospitalist Condition: Fair Discharge Instructions Interventions: ED Discharge Assessment Last Done: 11/03/24 19:40
[2024-11-03 15:27] LABS: Basophils # (auto) 0.07 K/uL (0.00-0.20); Basophils % (auto) 1.1 %; Eosinophils # (auto) 0.09 K/uL (0.00-0.50); Eosinophils % (auto) 1.4 %; Hematocrit (blood only) 38.2 % (37.0-47.0); Hemoglobin 12.5 g/dl (12.0-16.0); Immature Granulocytes # (auto) 0.02 K/uL (0.01-0.20); Immature Granulocytes % (auto) 0.3 %; Lymphocytes # (auto) 1.41 K/uL (1.20-3.40); Lymphocytes % (auto) 21.8 %; Mean Corpuscular Hemoglobin 31.2 pg (25.0-34.0); Mean Corpuscular Hgb Conc 32.7 g/dL (32.0-36.0); Mean Corpuscular Volume 95.3 fL (80.0-100.0); Mean Platelet Volume 11.3 fL (9.4-12.4); Monocytes # (auto) 0.78 K/uL (0.11-0.59); Monocytes % (auto) 12.1 %; Neutrophils # (auto) 4.09 K/uL (1.40-6.50); Neutrophils % (auto) 63.3 %; Platelet Count 199 K/uL (130-400); RDW Coefficient of Variation 13.1 % (11.5-14.5); RDW Standard Deviation 45.7 fL (36.4-46.3); Red Blood Count 4.01 M/uL (4.20-5.40); White Blood Count 6.46 K/ul (4.8-10.8)
[2024-11-03 15:33] LABS: iSTAT Creatinine 0.8 mg/dl (0.6-1.3); iSTAT Hemoglobin 11.9 g/dl (12.0-16.0); iSTAT Ionized Calcium 1.12 mmol/l (1.12-1.32); iSTAT Potassium 4.3 mmol/L (3.3-5.0)
[2024-11-03] MEDS: OPTIRAY 320 125ml IV ONE (15:37)
[2024-11-03 15:46] LABS: Albumin Globulin Ratio 1.8 (0.9-2); BUN Creatinine Ratio 36.2 (10-20); Bilirubin,Total 0.5 mg/dl (0.2-1.0); Calcium 9.5 mg/dl (8.6-10.3); Creatinine Clr Calc Pharmacy 47.4 ml/min; Globulin 2.3 gm/dl (2.5-4.0); Magnesium 1.9 mg/dl (1.7-2.4); Potassium 3.7 mmol/L (3.5-5.1); Total Protein 6.5 gm/dl (6.0-8.3)
[2024-11-03 15:53] LABS: Troponin I High Sensitivity 6.6 pg/ml (0-14)
--- NOTE | 2024-11-03 15:55 | CT Scan Report ---
CT angio neck with con CLINICAL HISTORY: neuro deficit, acute stroke suspected. COMPARISON STUDY: None TECHNIQUE: Following the IV administration of 115 of Optiray, CT angiogram of the neck was performed from the aortic arch to the skull base. Images are reviewed in the axial, sagittal, and coronal plane s. 3-D MIPS images are created and assessed. IV contrast was administered without complication. All m easurements were calculated based on NASCET criteria. A dose lowering technique was utilized adherin g to the principles of ALARA. CT DOSE: 974 FINDINGS: There are mild carotid bulb calcifications. No significant narrowing or occlusion seen at t he common or internal carotid arteries bilaterally or the vertebral arteries bilaterally. There are d iffuse degenerative changes of the cervical spine. IMPRESSION: No significant arterial narrowing or occlusion seen at the neck. ACT 112: Negative or not required by law. The above report was generated using voice recognition software. It may contain grammatical, syntax o r spelling errors. Electronically signed by: Javier Sanchez M.D. 11/03/2024 3:54 PM
--- NOTE | 2024-11-03 15:57 | CT Scan Report ---
CT SCAN OF THE BRAIN WITHOUT IV CONTRAST CLINICAL HISTORY: Sudden onset weakness. COMPARISON STUDY: TECHNIQUE: Unenhanced axial CT scan of the brain was performed from the vertex to the skull base. A dose lowering technique was utilized adhering to the principles of ALARA. CT DOSE: 974.41 mGy.cm FINDINGS: Brain parenchyma: No acute intracranial hemorrhage, midline shift or mass effect is present. Sutton-whi te matter differentiation is preserved. There are no extra-axial fluid collections. There are no find ings to suggest acute dural sinus thrombosis or acute territorial infarct. Moderate atrophy is noted. Mild white matter hypodensity suggests small vessel disease. Ventricles, sulci, cisterns: There is no hydrocephalus. The basal cisterns are patent. Calvarium: Unremarkable. Sinuses and mastoids: The visualized paranasal sinuses are clear. The mastoid air cells are well pneu matized. Orbits: The bony orbits are grossly intact. IMPRESSION: No acute intracranial findings. ACT 112: Negative or not required by law. Electronically signed by: Kenan Mckenna M.D. 11/03/2024 3:56 PM
--- NOTE | 2024-11-03 16:00 | CT Scan Report ---
CT angio head w con CLINICAL HISTORY: 84 years-old Female with neuro deficit, acute stroke suspected. Acute strokelike symptoms COMPARISON STUDY: Head CT same day TECHNIQUE: Following the IV administration of 115 cc of Optiray, CT angiogram of the brain was perfor med from the skull base to the vertex. Images are reviewed in the axial, sagittal, and coronal planes . 3-D MIPS images are created and assessed. IV contrast was administered without complication. All me asurements were obtained according to NASCET criteria. A dose lowering technique was utilized adherin g to the principles of ALARA. FINDINGS: CT BRAIN: Dictated separately CT ANGIOGRAM OF THE BRAIN: The imaged bilateral internal carotid arteries are patent. Middle cerebral arteries are patent. There is occlusion noted involving the mid aspect of the left A2 segment of the anterior cerebral artery o n image 127 series 6 with reconstitution of flow seen within the more distal branches. This is techni tara age indeterminate. The vertebrobasilar system and posterior cerebral arteries are widely patent. There is no aneurysm, h igh-grade stenosis, or proximal branch occlusion identified. Dural sinuses appear patent. IMPRESSION: 1. 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 2. Otherwise unremarkable CTA of the head. ACT 112: Negative or not required by law. The above report was generated using voice recognition software. It may contain grammatical, syntax o r spelling errors. Electronically signed by: Nura Calderon M.D. 11/03/2024 3:58 PM
[2024-11-03 16:19] LABS: Partial Thromboplastin Ratio 0.9; Partial Thromboplastin Time 25 Seconds (21-31); Prothrombin Time 11.3 Seconds (9.0-12.0)
--- NOTE | 2024-11-03 16:24 | XRay Report ---
Chest radiograph, one view History: Stroke alert Comparison: 04/10/2023 Findings: Single AP view of the chest performed. No focal consolidation or pleural effusion. No pneumothorax. The heart appears enlarged. Mitral valve annuloplasty. The pulmonary vascularity appears slightly indistinct. There is some subtle perihilar opacity at the left lower lung. No visualized bony or soft tissue abnormality. Left shoulder arthroplasty, with fixating plate and screw of the left humerus. Impression: Findings suggestive of mild pulmonary edema Electronically signed by Myron Schmidt 11-03-2024 4:24 PM
--- NOTE | 2024-11-03 17:17 | History & Physical Report ---
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 Luther Davenport, on-call [facility] neuro, over the phone -No indication for any procedural intervention for this finding (too distal for treatment) -Advised to load w/ 300mg Plavix and 81mg ASA --> given in ED -Start 81mg ASA daily and Plavix 75mg daily, increase Lipitor to 20mg daily Brain MRI pending TTE pending Appreciate formal neuro consult Check Hgb A1c/lipid panel Obtain PT/OT evals Speech therapy eval Bedside dysphagia screen --> if pass, will start regular/HH diet #Mild pulmonary edema noted on CXR #Mitral valve disease w/ severe regurgitation s/p repair in 2012 Follows w/ [facility] cards TTE, 01/2024: LVEF 55-59%, mildly enlarged LA, mild-mod AVR, moderate mitral stenosis, mild-mod MR, mild TR Given absence of resp complaints, will hold home Lasix for now to allow for permissive HTN ISO above #HTN Hold home losartan for now to allow for permissive HTN ISO above #HLD Lipitor dose increased as per above #History of frequent PVCs/PAT Continue BB w/ hold parameters #Metaplastic triple negative L breast cancer s/p lumpectomy and radiation Continue tamoxifen Follows w/ Rhonda Leija onc DVT Prophylaxis: SCDs/TEDs only pending brain MRI results Code Status: FULL CODE Disposition: Admit to PCU Patient seen in collaboration with Dr. Santana. Please see addendum. I spent a total of 66 minutes coordinating, documenting, and providing care for this patient excluding time spent in the performance of separately billed services or time spent by another provider/QHP. This included personally reviewing all current laboratories and imaging studies, medical reconciliation, outpatient chart review and discussion with specialists. This chart was completed in part utilizing Speech Voice Recognition Software. Grammatical errors, random word insertions, pronoun errors, and incomplete sentences are an occasional consequence of this system due to software limitatio ns, ambient noise, and hardware issues. Any formal questions or concerns about the content, text, or information contained within the body of this dictation should be directly addressed to the provider for clarification. 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 History obtained from the patient, at bedside, discussion with ED provider and associated chart review. Patient seen at bedside with Dr. Santana. Patient reportedly was shopping at [employer] earlier today when she suddenly fell forward while standing in front of a demonstration table. She was able to grab onto a nearby table. She was accompanied by a friend. HOLLYW around 1:30PM. She denies feeling dizzy or lightheaded during this situation but does admit that she felt "confused" when it happened. This was a witnessed event with multiple other shoppers nearby whom were able to get her seated in a nearby electric scooter. She admits to feeling like her right leg "gave out" during this. Denies ever experiencing any numbness or tingling in her extremities however. She has chronic right upper extremity weakness and limited mobility in the setting of severe rotator cuff issues. This is unchanged. Patient mentions she is "due for replacement" of her right shoulder. EMS noted possible right si ded facial drooping however this was not reported by her friend. There was also some concern that she was slow to verbally respond to questioning per report of her friend. feels her speech is "back to normal." Not currently on any blood thinners. No acknowledged prior history of CVA or TIA. No smoking history. Occasional alcohol use. No recreational drug use. Allergies Allergy/AdvReac Type Severity Reaction Status Date / Time Nitrate Analogues Allergy Mild Verified 11/03/24 16:58 nitrofurantoin Allergy Mild Verified 11/03/24 16:58 oxycodone Allergy Mild Hives Verified 11/03/24 16:58 amiodarone AdvReac Intermediate intolerant Unverified 11/03/24 16:58 ibuprofen AdvReac Mild Verified 11/03/24 16:58 Home Medications Medication Instructions Recorded Confirmed Type atorvastatin 10 mg tablet 10 mg PO HS 09/09/20 11/03/24 History calcium 600 mg (as carbonate)-vit 1 tab PO QAM 09/09/20 11/03/24 History D3 20 mcg (800 unit) chewable tablet (Caltrate plus D) cholecalciferol (vitamin D3) 25 25 mcg PO QAM 09/09/20 11/03/24 History mcg (1,000 unit) tablet (Vitamin D3) furosemide 20 mg tablet 20 mg PO QAM 09/09/20 11/03/24 History losartan 50 mg tablet 50 mg PO QAM 09/09/20 11/03/24 History metoprolol succinate 25 mg 25 mg PO BID 09/09/20 11/03/24 History tablet,extended release 24 hr metoprolol succinate 50 mg 50 mg PO BID 09/09/20 11/03/24 History tablet,extended release 24 hr multivitamin 1 tab PO QAM 09/09/20 11/03/24 History ursodiol 300 mg capsule 300 mg PO QAM 09/09/20 11/03/24 History diphenhydramine 25 1 tab PO HS 10/17/23 11/03/24 History mg-acetaminophen 500 mg tablet (Tylenol PM Extra Strength) tamoxifen 20 mg tablet 20 mg PO DAILY 10/17/23 11/03/24 History mecobalamin (vitamin B12) 1,000 1,000 mcg PO DAILY 04/30/24 11/03/24 History mcg chewable tablet ascorbic acid (vitamin C) 500 mg 500 mg PO DAILY 11/03/24 11/03/24 History tablet (Vitamin C) venlafaxine 150 mg 150 mg PO QAM 11/03/24 11/03/24 History capsule,extended release 24 hr Past Med/Surg History Problem List Stroke-like symptoms Artery disease, cerebral (Acute) TIA (transient ischemic attack) (Acute) Malignant neoplasm of upper-outer quadrant of left breast in female, estrogen receptor negative (Chronic 02/26/23) Fracture, humerus closed (Acute) Dyslipidemia Biliary cirrhosis Ruiz's syndrome Encounter for pre-operative examination DVT prophylaxis Adjustment disorder with depressed mood S/P mitral valve repair Periprosthetic fracture of shoulder Hypertension Medical History Bunion, left foot Bunion, right Hx of coronary angiogram with left heart cath; 12/11/2012 Surgical History History of left shoulder replacement H/O mitral valve repair 11/23/2012 H/O left breast biopsy 02/26/23 S/P lumpectomy, left breast 04/23/23 Dr. Shantelle Reaz; Left breast lumpectomy with preoperative localization and left axillary sentinel lymph node biopsy with injection of lymphazurin blue dye for sln mapping Family History Mother Colon cancer Father , L[facility] to [facility]; Hypertension Sister Liver transplant recipient Brother Lung cancer Brother No problems noted. 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 Physical Exam Physical Exam: Please refer to Dr. Santana's addendum for physical examination findings. Results & Data Results & Data Vital Signs (Past 12 Hours) Vital Signs Temp Pulse Resp BP Pulse Ox O2 Del Method 11/03/24 15:51 66 11/03/24 14:50 36.6 C 73 18 121/95 100 Room Air Laboratory Results Short CBC 11/03/24 Range/Units 14:23 WBC 6.46 (4.8-10.8) K/ul Hgb 12.5 (12.0-16.0) g/dl Hct 38.2 (37.0-47.0) % Plt Count 199 (130-400) K/uL BMP 11/03/24 14:23 Sodium 142 Potassium 3.7 Chloride 104 Carbon Dioxide 31 BUN 25 H Creatinine 0.69 Glucose 116 H Calcium 9.5 Liver Function 11/03/24 Range/Units 14:23 Total Bilirubin 0.5 (0.2-1.0) mg/dl AST 27 (13-39) U/L ALT 17 (7-52) U/L Alkaline Phosphatase 64 (34-104) U/L Albumin 4.2 (3.4-5.0) gm/dl Diagnostic Findings Chest X-Ray 11/03/24 15:05 Chest radiograph, one view History: Stroke alert Comparison: 04/10/2023 Findings: Single AP view of the chest performed. No focal consolidation or pleural effusion. No pneumothorax. The heart appears enlarged. Mitral valve annuloplasty. The pulmonary vascularity appears slightly indistinct. There is some subtle perihilar opacity at the left lower lung. No visualized bony or soft tissue abnormality. Left shoulder arthroplasty, with fixating plate and screw of the left humerus. Impression: Findings suggestive of mild pulmonary edema Electronically signed by Myron Schmidt 11-03-2024 4:[address] 11/03/24 15:05 CT SCAN OF THE BRAIN WITHOUT IV CONTRAST CLINICAL HISTORY: Sudden onset weakness. COMPARISON STUDY: TECHNIQUE: Unenhanced axial CT scan of the brain was performed from the vertex to the skull base. A dose lowering technique was utilized adhering to the principles of ALARA. CT DOSE: 974.41 mGy.cm FINDINGS: Brain parenchyma: No acute intracranial hemorrhage, midline shift or mass effect is present. Sutton-white matter differentiation is preserved. There are no extra- axial fluid collections. There are no findings to suggest acute dural sinus thrombosis or acute territorial infarct. Moderate atrophy is noted. Mild white matter hypodensity suggests small vessel disease. Ventricles, sulci, cisterns: There is no hydrocephalus. The basal cisterns are patent. Calvarium: Unremarkable. Sinuses and mastoids: The visualized paranasal sinuses are clear. The mastoid air cells are well pneumatized. Orbits: The bony orbits are grossly intact. IMPRESSION: No acute intracranial findings. ACT 112: Negative or not required by law. Electronically signed by: Kenan Mckenna M.D. 11/03/2024 3:56 PM Head CTA 11/03/24 15:05 CT angio head w con CLINICAL HISTORY: 84 years-old Female with neuro deficit, acute stroke suspected. Acute strokelike symptoms COMPARISON STUDY: Head CT same day TECHNIQUE: Following the IV administration of 115 cc of Optiray, CT angiogram of the brain was performed from the skull base to the vertex. Images are reviewed in the axial, sagittal, and coronal planes. 3-D MIPS images are created and assessed. IV contrast was administered without complication. All measurements were obtained according to NASCET criteria. A dose lowering technique was utilized adhering to the principles of ALARA. FINDINGS: CT BRAIN: Dictated separately CT ANGIOGRAM OF THE BRAIN: The imaged bilateral internal carotid arteries are patent. Middle cerebral arteries are patent. There is occlusion noted involving the mid aspect of the left A2 segment of the anterior cerebral artery on image 127 series 6 with reconstitution of flow seen within the more distal branches. This is technically age indeterminate. The vertebrobasilar system and posterior cerebral arteries are widely patent. There is no aneurysm, high-grade stenosis, or proximal branch occlusion identified. Dural sinuses appear patent. IMPRESSION: 1. 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 2. Otherwise unremarkable CTA of the head. ACT 112: Negative or not required by law. The above report was generated using voice recognition software. It may contain grammatical, syntax or spelling errors. Electronically signed by: Nura Calderon M.D. 11/03/2024 3:58 PM Neck CTA 11/03/24 15:05 CT angio neck with con CLINICAL HISTORY: neuro deficit, acute stroke suspected. COMPARISON STUDY: None TECHNIQUE: Following the IV administration of 115 of Optiray, CT angiogram of the neck was performed from the aortic arch to the skull base. Images are reviewed in the axial, sagittal, and coronal planes. 3-D MIPS images are created and assessed. IV contrast was administered without complication. All measuremen ts were calculated based on NASCET criteria. A dose lowering technique was utilized adhering to the principles of ALARA. CT DOSE: 974 FINDINGS: There are mild carotid bulb calcifications. No significant narrowing or occlusion seen at the common or internal carotid arteries bilaterally or the vertebral arteries bilaterally. There are diffuse degenerative changes of the cervical spine. IMPRESSION: No significant arterial narrowing or occlusion seen at the neck. ACT 112: Negative or not required by law. The above report was generated using voice recognition software. It may contain grammatical, syntax or spelling errors. Electronically signed by: Javier Sanchez M.D. 11/03/2024 3:54 PM Medications Administered Discontinued Medications Ioversol (Optiray 320 125ml) 115 ml IV ONCE ONE Stop: 11/03/24 15:38 Last Admin: 11/03/24 15:37 Dose: 115 ml Documented By: JDP Code Status & VTE Plan Code Status FULL CODE Supervising Physician Co-Signing Physician Notes Attending Addendum: Case reviewed with the advanced practitioner. I have personally performed a history and physical examination on the patient. I have reviewed the advanced practitioner's documentation on the date of service referenced in note, and I agree with, and take responsibility for the plan of care. please refer to her notes for full details patient seen and examined, records reviewed by myself as well on exam, patient seen resting in bed, comfortable patient's Ryan at bedside states she feels ok overall no headache, dizziness, nausea no focal neuro symptoms states she is back to her baseline no other symptoms VS noted and reviewed oriented x 3, not in distress, speaks in sentences with no effort nor accessory muscle use normal rate, regular rhythm, no murmurs clear breath sounds bilaterally non distended, soft, nontender no bipedal edema, erythema, warmth no new gross neuro focal deficits- cannot raise L arm high but this is chronic due to left shoulder pain as per patient all labs, imaging noted and reviewed ASSESSMENT AND PLAN> ACUTE LEFT FRONTAL LOBE CVA Brain MRI: Hyperacute infarction is seen at the medial aspect of the left frontal lobe with brief extension to the left aspect of the genu of the corpus callosum within the territory of the left anterior cerebral arteries, exhibiting bright signals on DWI and dark signals on ADC map, not detectable on T2 and FLAIR WI. Flow signals of the left, anterior cerebral artery are not appreciated. CT angio head: 1. 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 2. Otherwise unremarkable CTA of the head. discussed with Neurologist Dr. Isidro plata Plavix, ASA, increase to Lipitor 80' acute stroke protocol including echo, etc monitor in Tele Neuro consulted other diagnoses and plan of care as per advanced practitioner's notes I spent a total of 35 minutes coordinating, documenting, and providing care for this patient, excluding time spent in the performance of separately billed services or time spent by another provider/QHP. Toni Santana MD
[2024-11-03] MEDS: CLOPIDOGREL BISULFATE 300 MG TAB PO STA (17:26)
[2024-11-03] MEDS: ASPIRIN 81 MG ECTAB PO STA (17:26)
--- NOTE | 2024-11-03 19:47 | Magnetic Resonance Report ---
EXAM: MR brain wo con CLINICAL HISTORY: Stroke r/o, L anterior cerebral artery occlusion TECHNIQUE: Different pulse sequences were performed in different planes without GD-DTPA injection for the brain. Images were sent through PACs for interpretation. COMPARISON: None. FINDINGS: Hyperacute infarction is seen at the medial aspect of the left frontal lobe with brief extension to the left aspect of the genu of the corpus callosum within the territory of the left anterior cerebral arteries, exhibiting bright signals on DWI and dark signals on ADC map, not detectable on T2 and FLAIR WI. Flow signals of the left, anterior cerebral artery are not appreciated. Chronic infarctions with microcystic gliosis are seen at the right periventricular region and cerebellar hemispheres, more on the right side. These follow CSF signals on different pulse sequences. Blooming signals are seen on T2*WI at the right periventricular region, suggesting a hemosiderin deposition/calcification. Altered deep white matter signals are seen at the pontine isthmus, forceps minor, forceps major, periventricular, and centrum semiovale regions. These exhibit bright signals on T2 and FLAIR WI, and intermediate signals on T1 WI. Findings suggest consequences of small vessel disease, e.g., hypertensive and/or diabetic vasculopathy. Age-appropriate degenerative involutional changes are denoted by symmetrical dilatation of the ventricular system, prominent cortical sulci, sylvian fissures, cerebellar, vermian folia, and basal cisterns. Normal MRI appearance of the deep white matter and central mustafa matter aggregates. Normal size and configuration of the cerebral ventricles. Normal MRI appearance of the petrous temporal bones, vestibule cochlear nerves, and cerebellopontine angles with no definite masses. No shift of midline structures. No intracerebral or extra-axial hematomas or masses. Normal MRI appearance of orbital structures, both globes, optic nerves, optic chiasm, optic tracts and optic radiations. The scanned paranasal sinuses are unremarkable. Bilateral cataract surgery. IMPRESSION: 1. Hyperacute infarction is seen at the medial aspect of the left frontal lobe with brief extension to the left aspect of the genu of the corpus callosum within the territory of the left anterior cerebral arteries, exhibiting bright signals on DWI and dark signals on ADC map, not detectable on T2 and FLAIR WI. Flow signals of the left, anterior cerebral artery are not appreciated. 2. Chronic infarctions with microcystic gliosis are seen at the right periventricular region and cerebellar hemispheres, more on the right side. 3. Imaging features consistent with the consequences of small vessel disease, e.g., hypertensive and/or diabetic vasculopathy. ([place] 2). Blooming signals are seen on T2*WI at the right periventricular region, suggesting a hemosiderin deposition/calcification. 4. Age-appropriate degenerative involutional changes. 5. Follow-up is recommended as appropriate. [facility] ER was called at at 06:41 PM GEOLOGIC TECHNICIAN, 11/03/[address] Odom was informed regarding the presence of Critical Medical Findings in this report. Electronically signed by Miguelangel Rice 11-03-2024 7:46 PM
[2024-11-03] MEDS ORDERED: PHARMACIST DISCHARGE MED REC CONSULT PRN ×2 (20:09→20:25)
[2024-11-03] MEDS ORDERED: MAGNESIUM HYDROXIDE SUSP 30 ML UDC PO PRN (20:25)
[2024-11-03] MEDS ORDERED: POLYETHYLENE (MIRALAX) 17 GM PACK PO PRN (20:25)
[2024-11-03] MEDS ORDERED: ONDANSETRON INJ 2 MG/ML 2 ML VIAL IV PRN (20:25)
[2024-11-03] MEDS: METOPROLOL SUCC 50MG EXT REL TAB PO SCH (20:35)
[2024-11-03] MEDS: ATORVASTATIN 40 MG TAB PO SCH (20:36)
[2024-11-03] MEDS ORDERED: METOPROLOL SUCC 50MG EXT REL TAB PO SCH (21:00)
[2024-11-03] MEDS ORDERED: METOPROLOL SUCC 25MG EXT REL TAB PO SCH (21:00)
[2024-11-03] MEDS ORDERED: ATORVASTATIN 20 MG TAB PO SCH (21:00)
[2024-11-03] MEDS: ACETAMINOPHEN 325 MG TAB PO PRN (21:57)
[2024-11-04 05:35] LABS: Basophils # (auto) 0.08 K/uL (0.00-0.20); Basophils % (auto) 1.3 %; Eosinophils # (auto) 0.15 K/uL (0.00-0.50); Eosinophils % (auto) 2.4 %; Hematocrit (blood only) 34.1 % (37.0-47.0); Hemoglobin 11.3 g/dl (12.0-16.0); Immature Granulocytes # (auto) 0.02 K/uL (0.01-0.20); Immature Granulocytes % (auto) 0.3 %; Lymphocytes # (auto) 1.75 K/uL (1.20-3.40); Lymphocytes % (auto) 28.5 %; Mean Corpuscular Hemoglobin 31.2 pg (25.0-34.0); Mean Corpuscular Hgb Conc 33.1 g/dL (32.0-36.0); Mean Corpuscular Volume 94.2 fL (80.0-100.0); Mean Platelet Volume 11.1 fL (9.4-12.4); Monocytes # (auto) 0.86 K/uL (0.11-0.59); Neutrophils # (auto) 3.29 K/uL (1.40-6.50); Neutrophils % (auto) 53.5 %; Platelet Count 175 K/uL (130-400); RDW Coefficient of Variation 13.1 % (11.5-14.5); RDW Standard Deviation 45.5 fL (36.4-46.3); Red Blood Count 3.62 M/uL (4.20-5.40); White Blood Count 6.15 K/ul (4.8-10.8)
[2024-11-04 05:49] LABS: BUN Creatinine Ratio 36.2 (10-20); Calcium 8.9 mg/dl (8.6-10.3); Chol HDL Ratio 1.9 (0-5); Creatinine Clr Calc Pharmacy 33.7 ml/min; Magnesium 1.9 mg/dl (1.7-2.4); Phosphorus 3.5 mg/dl (2.5-4.9); Potassium 4.2 mmol/L (3.5-5.1)
[2024-11-04 07:48] LABS: Estimated Average Glucose 108 mg/dl; Hemoglobin A1C 5.4 % (4.5-5.6)
[2024-11-04] MEDS: MULTIVITAMIN TAB PO SCH (09:12)
[2024-11-04] MEDS: VENLAFAXINE HCL XR 150 MG CAPXR PO SCH (09:14)
[2024-11-04] MEDS: ursodioL 300 MG CAP PO SCH (09:14)
[2024-11-04] MEDS: CYANOCOBALAMIN (B-12) 500 MCG TABLET PO SCH (09:14)
[2024-11-04] MEDS: TAMOXIFEN CITRATE 10 MG TABLET PO SCH (09:14)
[2024-11-04] MEDS: CALCIUM 600MG + VIT D 400 IU TAB PO SCH (09:15)
[2024-11-04] MEDS: ASPIRIN 81 MG ECTAB PO SCH (09:16)
[2024-11-04] MEDS: CHOLECALCIFEROL 25 MCG (1000 UNITS) TAB PO SCH (09:17)
[2024-11-04] MEDS: CLOPIDOGREL BISULFATE 75 MG TAB PO SCH (09:17)
[2024-11-04] MEDS: ASCORBIC ACID 500 MG TAB PO SCH (09:17)
[2024-11-04 11:25] VITALS: BP 154/82; RESP 20; TEMP 97.5; O2SAT 97
--- NOTE | 2024-11-04 13:13 | Electrocardiogram Report ---
Test Reason : Blood Pressure : */* mmHG Vent. Rate : 68 BPM Atrial Rate : 68 BPM P-R Int : 184 ms QRS Dur : 72 ms QT Int : 438 ms P-R-T Axes : 57 -55 55 degrees QTcB Int : 465 ms Normal sinus rhythm Left axis deviation Low voltage QRS Abnormal ECG When compared with ECG of 09-Sep-2020 16:54, T wave inversion more evident in Anterior leads Confirmed by Myron Muller ([id number]) on 11/04/2024 1:12:49 PM Referred By: REFERRED SELF Confirmed By: Myron Muller
--- NOTE | 2024-11-04 14:55 | Neurology Consultation ---
Date of Consultation November 04, 2024 Assessment & Plan (1) Acute ischemic left CARLIE stroke: Differential diagnosis includes intracranial atherosclerotic disease versus cardioembolic which is more likely given history of valvular disease. Plan The patient is clinically doing much better. Continue with aspirin 81 mg, Plavix 75 mg and atorvastatin 80 mg for 3 months then this can be switched with single antiplatelet. Repeat Zio patch as an outpatient per cardiology, the patient follows with her own cardiology at [facility] to rule out new onset paroxysmal atrial fibrillation that was not previously detected. Consider anticoagulation if this is proven true. PT OT as an outpatient. Follow-up with neurology as an outpatient Telehealth Consultation Telehealth Information Telehealth Information: I performed this visit using a real-time telehealth connection between my location and the patients location ([facility]). After connecting through interactive tele-video, patient was identified by name and date of and/or wristband check.Patient (or authorized healthcare branch customer service representative) was informed that this was a telemedicine visit and it was being conducted confidentially over secure lines. My office door was closed and no one else was present in the room with me.Patient (or authorized healthcare branch customer service representative) provided consent to proceed with the visit, expressed an understanding of privacy and security of the telemedicine visit, and gave permission to have a hospital branch customer service representative in the room in order to assist with the visit and to conduct portions of the visit, as needed. I informed the patient (or authorized healthcare branch customer service representative) that I reviewed their record and presented the opportunity for them to ask any questions regarding the visit today. The patient agreed to participate. History of Present Illness Reason for Consultation: Acute ischemic stroke Requesting Physician: Zoe Carey MD Attending Physician: Zoe Carey MD History of Present Illness 84-year-old female patient with PMH of HTN HLP history of PVCs PACs mitral valve disease and severe regurgitation status postrepair in 2013 history of biliary cirrhosis and Ruiz syndrome, history of left breast cancer status postlumpectomy maintained on tamoxifen. The patient presented to ED yesterday after a fall from standing while she was at [employer] after feeling lightheaded or dizzy, afterwards the patient felt a little confused and had difficulty finding her words, her right leg gave out, she does have a right shoulder issues but was able to hang on. She denies any right arm weakness. By the time she arrived the emergency room she was able to lift her leg and with minimal drift and did not have any other focal neurological deficits. Today she tells me that she was able to walk and was doing okay she is eager to go home. She denies any visual changes any numbness or weakness any confusion was able to walk. Allergies Allergy/AdvReac Type Severity Reaction Status Date / Time Nitrate Analogues Allergy Mild Verified 11/03/24 16:58 nitrofurantoin Allergy Mild Verified 11/03/24 16:58 oxycodone Allergy Mild Hives Verified 11/03/24 16:58 amiodarone AdvReac Intermediate intolerant Unverified 11/03/24 16:58 ibuprofen AdvReac Mild Verified 11/03/24 16:58 Home Medications Medication Instructions Recorded Confirmed Type atorvastatin 10 mg tablet 10 mg PO HS 09/09/20 11/03/24 History calcium 600 mg (as carbonate)-vit 1 tab PO QAM 09/09/20 11/03/24 History D3 20 mcg (800 unit) chewable tablet (Caltrate plus D) cholecalciferol (vitamin D3) 25 25 mcg PO QAM 09/09/20 11/03/24 History mcg (1,000 unit) tablet (Vitamin D3) furosemide 20 mg tablet 20 mg PO QAM 09/09/20 11/03/24 History losartan 50 mg tablet 50 mg PO QAM 09/09/20 11/03/24 History metoprolol succinate 25 mg 25 mg PO BID 09/09/20 11/03/24 History tablet,extended release 24 hr metoprolol succinate 50 mg 50 mg PO BID 09/09/20 11/03/24 History tablet,extended release 24 hr multivitamin 1 tab PO QAM 09/09/20 11/03/24 History ursodiol 300 mg capsule 300 mg PO QAM 09/09/20 11/03/24 History diphenhydramine 25 1 tab PO HS 10/17/23 11/03/24 History mg-acetaminophen 500 mg tablet (Tylenol PM Extra Strength) tamoxifen 20 mg tablet 20 mg PO DAILY 10/17/23 11/03/24 History mecobalamin (vitamin B12) 1,000 1,000 mcg PO DAILY 04/30/24 11/03/24 History mcg chewable tablet ascorbic acid (vitamin C) 500 mg 500 mg PO DAILY 11/03/24 11/03/24 History tablet (Vitamin C) venlafaxine 150 mg 150 mg PO QAM 11/03/24 11/03/24 History capsule,extended release 24 hr aspirin 81 mg tablet,delayed 81 mg PO QAM #30 tabs 11/04/24 Rx release atorvastatin 40 mg tablet 80 mg (2 x 40 mg) PO HS #60 tabs 11/04/24 Rx clopidogrel 75 mg tablet 75 mg PO QAM 20 days #20 tabs 11/04/24 Rx Patient History Medical History Bunion, left foot Bunion, right Hx of coronary angiogram with left heart cath; 12/11/2012 Surgical History History of left shoulder replacement H/O mitral valve repair 11/23/2012 H/O left breast biopsy 02/26/23 S/P lumpectomy, left breast 04/23/23 Dr. Shantelle Reza; Left breast lumpectomy with preoperative localization and left axillary sentinel lymph node biopsy with injection of lymphazurin blue dye for sln mapping Family History Mother Colon cancer Father , L[facility] to [facility]; Hypertension Sister Liver transplant recipient Brother Lung cancer Brother No problems noted. 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 [employer] How many Children do You have: 3 Feels Safe at Home: Yes Childhood Exposure to Second-Hand Smoke: No Assistive Devices: None Review of Systems Review of systems is otherwise negative except for the points mentioned in HPI Physical Exam General Constitutional: Appearance normally developed Head and face: normocephalic and atraumatic Eyes: no ptosis, no anisocoria, and no dysconjugate gaze Respiratory: normal effort Cardiovascular: regular rhythm and regular rate Abdomen: non distended Skin: no rashes, lesions, or ulcers noted Psychiatric: normal judgement and insight, normal mood, and normal affect NEUROLOGIC EXAMINATION: Mental Status:alert, oriented to time, place, person, normal recent memory, normal remote memory, normal attention span, normal concentration, normal language and normal fund of knowledge Cranial Nerves: CN 2 - no visual defect on confrontation and pupils round, equal, reactive to light CN 3, 4, 6 - extra-ocular movements intact and no nystagmus CN 5 - facial sensation intact CN 7 - no facial asymmetry CN 8 - intact hearing CN 9, 10 - palate symmetric, normal gag CN 11 - good shoulder shrug CN 12 - tongue midline MOTOR: Strength was at least antigravity throughout, Pronator drift was absent and There were no abnormal movements SENSATION: intact and symmetric to pinprick, light touch, vibration and joint position GAIT: stable, no ataxia and can perform tandem walking COORDINATION: no ataxia with finger to nose testing and heel to newman testing REFLEXES: cannot assess over telemedicine NIH Stroke Scale: 1a. Level of Consciousness: alert = 0 1b. LOC Questions: (month, age): both correct = 0 1c. LOC Commands (open and close eyes, make fist and let go using non-paretic hand): obeys both correctly = 0 2. Best Gaze (eyes open and patient follows examiner's finger or face): normal = 0 3. Visual (visual threat or finger counting in each quadrant): no loss = 0 4. Facial Palsy (show teeth, raise eye brows and squeeze eyes shut, or grimace symmetry in a comatose patient): normal = 0 5a. Motor Arm (extend arm (palms down) to 90 degrees and score drift/movement (10 seconds) - Left: no drift = 0 5b. Motor Arm: (extend arm (palms down) to 90 degrees and score drift/movement (10 seconds) - Right: no drift = 0 6a. Motor Leg (elevate leg 30 degrees and score drift/ movement (5 seconds) - Left: no drift = 0 6b. Motor Leg (elevate leg 30 degrees and score drift/ movement (5 seconds) - Right: no drift = 0 7. Limb Ataxia (finger to nose, heel down newman): absent = 0 8. Sensory (pin prick to face, arm, trunk and leg, compare side to side): normal = 0 9. Best Language: no aphasia = 0 10. Dysarthria (evaluate speech clarity by patient repeating listed words): normal articulation = 0 11. Extinction and Inattention: no neglect = 0 Total: 0 Results & Data Vital Signs (Past 12 Hours) Vital Signs Temp Pulse Pulse Resp BP Pulse Ox O2 Del Method 11/04/24 14:29 79 11/04/24 11:24 36.4 C L 75 20 154/82 H 97 Room Air 11/04/24 07:36 64 11/04/24 07:28 36.5 C 69 19 173/76 H 92 Room Air 11/04/24 04:00 36.9 C 73 18 136/69 96 Room Air Laboratory Results Laboratory Results - last 24 hr 11/03/24 11/03/24 11/04/24 14:23 15:21 05:04 WBC 6.46 6.15 RBC 4.01 L 3.62 L Hgb 12.5 11.3 L POC Hgb 11.9 L Hct 38.2 34.1 L POC Hct 35 L MCV 95.3 94.2 MCH 31.2 31.2 MCHC 32.7 33.1 RDW Std Deviation 45.7 45.5 RDW Coeff of Ruma 13.1 13.1 Plt Count 199 175 MPV 11.3 11.1 Immature Gran % (Auto) 0.3 0.3 Neut % (Auto) 63.3 53.5 Lymph % (Auto) 21.8 28.5 [place] % (Auto) 12.1 14.0 Eos % (Auto) 1.4 2.4 Baso % (Auto) 1.1 1.3 Neut # (Auto) 4.09 3.29 Lymph # (Auto) 1.41 1.75 [place] # (Auto) 0.78 H 0.86 H Eos # (Auto) 0.09 0.15 Baso # (Auto) 0.07 0.08 Immature Gran # (Auto) 0.02 0.02 PT 11.3 INR 1.0 APTT 25 PTT Ratio 0.9 POC Sodium 139 Sodium 142 140 POC Potassium 4.3 Potassium 3.7 4.2 POC Chloride 102 Chloride 104 108 H Carbon Dioxide 31 28 POC Total CO2 29 Anion Gap 7 4 POC Anion Gap 14.0 L POC BUN 31 H BUN 25 H 25 H Creatinine 0.69 0.69 POC Creatinine 0.8 Est Cr Clr Drug Dosing 47.4 33.7 eGFR 84.47 84.47 BUN/Creatinine Ratio 36.2 H 36.2 H Glucose 116 H 91 POC Glucose (other) 129 H Estimat Average Glucose 108 Hemoglobin A1c 5.4 Calcium 9.5 8.9 POC Ioniz Calcium Glen 1.12 Phosphorus 3.5 Magnesium 1.9 1.9 Total Bilirubin 0.5 AST 27 ALT 17 Alkaline Phosphatase 64 Troponin I High Sens 6.6 Total Protein 6.5 Albumin 4.2 Globulin 2.3 L Albumin/Globulin Ratio 1.8 Triglycerides 77 Cholesterol 145 LDL Cholesterol, Calc 52 VLDL Cholesterol, Calc 15 HDL Cholesterol 78 Cholesterol/HDL Ratio 1.9 Diagnostic Findings MRI of the brain shows an acute infarct within the medial left frontal lobe cor responding with the left CARLIE territory CTA head and neck shows atherosclerosis without significant stenosis within the neck, no occlusion of the distal A2 segment of the left CARLIE. EKG showed normal sinus rhythm Echocardiogram showed LVEF of 55-60%, mild aortic regurgitation, moderate mitral annular calcification, mild mitral stenosis and regurgitation no evidence of an interatrial septal defect. Medications Administered Home Medications Medication Instructions Recorded Confirmed Last Taken atorvastatin 10 mg tablet 10 mg PO HS 09/09/20 11/03/24 11/02/24 calcium 600 mg (as carbonate)-vit 1 tab PO [facility] 09/09/20 11/03/24 11/03/24 D3 20 mcg (800 unit) chewable tablet (Caltrate plus D) cholecalciferol (vitamin D3) 25 25 mcg PO [facility] 09/09/20 11/03/24 11/03/24 mcg (1,000 unit) tablet (Vitamin D3) furosemide 20 mg tablet 20 mg PO [facility] 09/09/20 11/03/24 11/03/24 losartan 50 mg tablet 50 mg PO [facility] 09/09/20 11/03/24 11/03/24 metoprolol succinate 25 mg 25 mg PO BID 09/09/20 11/03/24 11/03/24 tablet,extended release 24 hr metoprolol succinate 50 mg 50 mg PO BID 09/09/20 11/03/24 11/03/24 tablet,extended release 24 hr multivitamin 1 tab PO [facility] 09/09/20 11/03/24 11/03/24 ursodiol 300 mg capsule 300 mg PO QAM 09/09/20 11/03/24 11/03/24 diphenhydramine 25 1 tab PO HS 10/17/23 11/03/24 11/02/24 mg-acetaminophen 500 mg tablet (Tylenol PM Extra Strength) tamoxifen 20 mg tablet 20 mg PO DAILY 10/17/23 11/03/24 11/03/24 mecobalamin (vitamin B12) 1,000 1,000 mcg PO DAILY 04/30/24 11/03/24 11/03/24 mcg chewable tablet ascorbic acid (vitamin C) 500 mg 500 mg PO DAILY 11/03/24 11/03/24 11/03/24 tablet (Vitamin C) venlafaxine 150 mg 150 mg PO QAM 11/03/24 11/03/24 11/03/24 capsule,extended release 24 hr aspirin 81 mg tablet,delayed 81 mg PO QAM #30 tabs 11/04/24 Unknown release atorvastatin 40 mg tablet 80 mg (2 x 40 mg) PO HS #60 tabs 11/04/24 Unknown clopidogrel 75 mg tablet 75 mg PO QAM 20 days #20 tabs 11/04/24 Unknown Active Medications Generic Name Dose Route Start Last Admin Trade Name Freq PRN Reason Stop Dose Admin Acetaminophen 650 mg 11/03/24 20:25 11/04/24 13:50 Acetaminophen 325 Mg Tab PO 12/03/24 20:24 650 mg Q4H PRN Administration Pain or Fever Ascorbic Acid 500 mg 11/04/24 09:00 11/04/24 09:17 Ascorbic Acid 500 Mg Tab PO 12/04/24 08:59 500 mg DAILY LOVE Administration Aspirin 81 mg 11/04/24 09:00 11/04/24 09:16 Aspirin 81 Mg Ectab PO 12/04/24 08:59 81 mg QAM LOVE Administration Atorvastatin Calcium 80 mg 11/03/24 21:00 11/03/24 20:36 Atorvastatin 40 Mg Tab PO 12/03/24 20:59 80 mg HS LOVE Administration Calcium/Vitamin D 1 tab 11/04/24 09:00 11/04/24 09:15 Calcium 600mg + Vit D 400 Iu Tab PO 12/04/24 08:59 1 tab QAM LOVE Administration Clopidogrel Bisulfate 75 mg 11/04/24 09:00 11/04/24 09:17 Clopidogrel Bisulfate 75 Mg Tab PO 12/04/24 08:59 75 mg QAM LOVE Administration Cyanocobalamin 1,000 mcg 11/04/24 09:00 11/04/24 09:14 Cyanocobalamin (B-12) 500 Mcg Tablet PO 12/04/24 08:59 1,000 mcg DAILY LOVE Administration Metoprolol Succinate 25 mg 11/03/24 21:00 11/04/24 09:15 Metoprolol Succ 50mg Ext Rel Tab PO 12/03/24 20:59 25 mg BID LOVE Administration Multivitamins 1 tab 11/04/24 09:00 11/04/24 09:12 Multivitamin Tab PO 12/04/24 08:59 1 tab QAM LOVE Administration Tamoxifen Citrate 20 mg 11/04/24 09:00 11/04/24 09:14 Tamoxifen Citrate 10 Mg Tablet PO 12/04/24 08:59 20 mg DAILY LOVE Administration Ursodiol 300 mg 11/04/24 09:00 11/04/24 09:14 Ursodiol 300 Mg Cap PO 12/04/24 08:59 300 mg QAM LOVE Administration Venlafaxine HCl 150 mg 11/04/24 09:00 11/04/24 09:14 Venlafaxine Hcl Xr 150 Mg Capxr PO 12/04/24 08:59 150 mg QAM LOVE Administration Vitamin D 25 mcg 11/04/24 09:00 11/04/24 09:17 Cholecalciferol 25 Mcg (1000 Units) Tab PO 12/04/24 08:59 25 mcg QAM LOVE Administration ECG Additional Comments: NSR
--- NOTE | 2024-11-04 14:59 | Discharge Summary ---
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 History obtained from the patient, at bedside, discussion with ED provider and associated chart review. Patient seen at bedside with Dr. Santana. Patient reportedly was shopping at [employer] earlier today when she suddenly fell forward while standing in front of a demonstration table. She was able to grab onto a nearby table. She was accompanied by a friend. LKW around 1:30PM. She denies feeling dizzy or lightheaded during this situation but does admit that she felt "confused" when it happened. This was a witnessed event with multiple other shoppers nearby whom were able to get her seated in a nearby electric scooter. She admits to feeling like her right leg "gave out" during this. Denies ever experiencing any numbness or tingling in her extremities however. She has chronic right upper extremity weakness and limited mobility in the setting of severe rotator cuff issues. This is unchanged. Patient mentions she is "due for replacement" of her right shoulder. EMS noted possible right sided facial drooping however this was not reported by her friend. There was also some concern that she was slow to verbally respond to questioning per report of her friend. feels her speech is "back to normal." Not currently on any blood thinners. No acknowledged prior history of CVA or TIA. No smoking history. Occasional alcohol use. No recreational drug use. Admission Exam Per Admitting Provider oriented x 3, not in distress, speaks in sentences with no effort nor accessory muscle use normal rate, regular rhythm, no murmurs clear breath sounds bilaterally non distended, soft, nontender no bipedal edema, erythema, warmth no new gross neuro focal deficits- cannot raise L arm high but this is chronic due to left shoulder pain as per patient Principal Diagnosis acute ischemic stroke, likely cardoembolic Discharge Exam oriented x 3, not in distress, speaks in sentences with no effort nor accessory muscle use normal rate, regular rhythm, no murmurs clear breath sounds bilaterally non distended, soft, nontender no bipedal edema, erythema, warmth no new gross neuro focal deficits- cannot raise L arm high but this is chronic due to left shoulder pain as per patient Discharge Data Allergies Allergy/AdvReac Type Severity Reaction Status Date / Time Nitrate Analogues Allergy Mild Verified 11/03/24 16:58 nitrofurantoin Allergy Mild Verified 11/03/24 16:58 oxycodone Allergy Mild Hives Verified 11/03/24 16:58 amiodarone AdvReac Intermediate intolerant Unverified 11/03/24 16:58 ibuprofen AdvReac Mild Verified 11/03/24 16:58 Consultations 11/03/24 16:53 ED Decision to Admit Stat 11/03/24 17:59 Consult Neurology Routine Ordered Studies 11/03/24 15:05 CT angio head w con Stat CT angio neck with con Stat CT head/brain wo con Stat 11/03/24 16:53 MRI Brain [MR brain wo con] Stat Hospital Course (1) Stroke-like symptoms: Plan Per prior attending with addendum: Patient is an 84-year-old female with past medical history significant for HLD, HTN, history of frequent PVCs/PAT, mitral valve disease with severe regurgitation s/p repair in 2012, moderate mitral stenosis without pulmonary hypertension, normal coronary anatomy per left heart catheterization in 2012, history of Ruiz's syndrome, biliary cirrhosis, senile osteoporosis, primary osteoarthritis of both knees, 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 Luther Davenport, on-call [facility] neuro, over the phone -No indication for any procedural intervention for this finding (too distal for treatment) -Advised to load w/ 300mg Plavix and 81mg ASA --> given in ED -Start 81mg ASA daily and Plavix 75mg daily, increase Lipitor to 20mg daily Brain MRI pending TTE pending Appreciate formal neuro consult Check Hgb A1c/lipid panel Obtain PT/OT evals Speech therapy eval Bedside dysphagia screen --> if pass, will start regular/HH diet #Mild pulmonary edema noted on CXR #Mitral valve disease w/ severe regurgitation s/p repair in 2012 Follows w/ Rhonda tan TTE, 01/2024: LVEF 55-59%, mildly enlarged LA, mild-mod AVR, moderate mitral stenosis, mild-mod MR, mild TR Given absence of resp complaints, will hold home Lasix for now to allow for permissive HTN ISO above #HTN Hold home losartan for now to allow for permissive HTN ISO above #HLD Lipitor dose increased as per above #History of frequent PVCs/PAT Continue BB w/ hold parameters #Metaplastic triple negative L breast cancer s/p lumpectomy and radiation Continue tamoxifen Follows w/ Rhonda Leija onc DVT Prophylaxis: SCDs/TEDs only pending brain MRI results Code Status: FULL CODE Disposition: Admit to PCU Patient seen in collaboration with Dr. Santana. Please see addendum. Addendum 11/04/2024: Patient was seen and examined at bedside as a follow-up of acute ischemic stroke, likely cardioembolic. Echo reviewed, no interatrial septum. MRI brain reviewed, acute left frontal lobe ischemic stroke. Patient reports complete resolution of her right-sided weakness, there is no facial deviation noted on exam. Discussed the case with neurology, plan to continue DAPT for 21 days followed by aspirin indefinitely. Atorvastatin dose has been increased to 80 Mg at bedtime. Recommend that patient follow-up with her cardiology office or primary care office to set herself up with Zio patch monitoring as an outpatient. Patient is being discharged to home with following instructions at the point of discharge: Follow-up with your primary care physician within a week time and likely you will need labs CBC/CMP/magnesium/phosphorus. You were admitted for acute stroke, neurology evaluated you while in the hospital. You will need Zio patch monitoring as an outpatient, coordinate with your primary care office or cardiology office to set up the test. Follow-up with neurology in 1 to 2 months time upon discharge. You have been started on aspirin and Plavix. You can discontinue Plavix after 21 days from 11/04/2024. Avoid omeprazole while on Plavix. Continue aspirin indefinitely. Your atorvastatin dose has been increased to 80 mg. Take your medications as prescribed. Please make sure that you are able to get your medications today by calling your pharmacy before you leave the hospital so that your treatment continuity is not broken. By CMS guidelines, a determination that the admission or continued stay is not medically necessary has been made by a member of the Utilization Review committee and a physician for this hospital stay. Therefore, a Code 44 will be completed and the inpatient admission will be changed to outpatient. Home Health Attestation I certify that this patient is under my care and that I, or a physicians psychology assistant working with me, had a face to-face encounter that meets the home health [id number] encounter requirements with this patient. The encounter with the patient was in whole, or in part, for the following medical condition, which is the primary reason for home health care (list medical condition): I certify that, based on my findings, the following services are medically necessary home health services: My clinical findings support the need for the above services because: Further, I certify that my clinical findings support that this patient is homebound (i.e. absences from home require considerable and taxing effort and are for medical reasons or zoroastrian services or infrequently or of short duration when for other reasons) because: Certification for Home Health Services: Based on the above findings, I certify that this patient is confined to the home and needs intermittent senior living care, physical therapy and/or speech therapy or continues to need occupational therapy. The patient is under my care, and I have initiated the establishment of the plan of care. This patient will be followed by a physician who will periodically review the plan of care. Total Time Total Time Spent Total Time Spent (In Minutes): 45 Discharge Plan Discharge Items Patient Disposition: Home - Self-Care Reason For Visit: CVA R/O Discharge Diagnosis: Acute left frontal stroke, ischemic Condition on Discharge: Fair Activity: Resume your previous activity Non-emergency contact: Primary Care Provider Call non-emergency contact if: you have any medication questions Follow-up/Referrals: Erick Schmidt DO [Primary Care Provider] - Diet: Heart Healthy Addtl Attending Provider Instructions: Follow-up with your primary care physician within a week time and likely you will need labs CBC/CMP/magnesium/phosphorus. You were admitted for acute stroke, neurology evaluated you while in the hospital. You will need Zio patch monitoring as an outpatient, coordinate with your primary care office or cardiology office to set up the test. Follow-up with neurology in 1 to 2 months time upon discharge. You have been started on aspirin and Plavix. You can discontinue Plavix after 21 days from 11/04/2024. Avoid omeprazole while on Plavix. Continue aspirin indefinitely. Your atorvastatin dose has been increased to 80 mg. Take your medications as prescribed. Please make sure that you are able to get your medications today by calling your pharmacy before you leave the hospital so that your treatment continuity is not broken. Pending Studies at Discharge: No Stand-Alone Forms: My [facility] [employer], Smoking Cessation, Medications to Prevent Stroke Medications and DC Order Prescriptions: New atorvastatin 40 mg Tablet 80 mg PO HS Qty: 60 0RF clopidogrel 75 mg Tablet 75 mg PO QAM 20 Days Qty: 20 0RF aspirin 81 mg Tablet,Delayed Release (Dr/Ec) 81 mg PO QAM Qty: 30 0RF Continued Tylenol PM Extra Strength 25-500 mg tablet 1 tab PO HS tamoxifen 20 mg tablet 20 mg PO DAILY mecobalamin (vitamin B12) 1,000 mcg tablet,chewable 1,000 mcg PO DAILY multivitamin Tablet 1 tab PO QAM losartan 50 mg tablet 50 mg PO QAM metoprolol succinate 50 mg tablet extended release 24 hr 50 mg PO BID Rx Instructions: Take w/ 25mg to equal 75mg by mouth twice daily furosemide 20 mg tablet 20 mg PO QAM cholecalciferol (vitamin D3) [Vitamin D3] 25 mcg (1,000 unit) Tablet 25 mcg PO QAM Caltrate 600 plus D 600 mg (1,500 mg)-800 unit Tablet,Chewable 1 tab PO QAM ursodiol 300 mg capsule 300 mg PO QAM metoprolol succinate 25 mg tablet extended release 24 hr 25 mg PO BID Rx Instructions: Take w/ 50mg to equal 75mg by mouth twice daily venlafaxine 150 mg capsule,extended release 24hr 150 mg PO QAM ascorbic acid (vitamin C) [Vitamin C] 500 mg Tablet 500 mg PO DAILY Discontinued atorvastatin 10 mg tablet 10 mg PO HS Discharge Orders: Discharge Order (Routine); Ordered 11/04/24 Ordered By: Zoe Carey Admission Data Admit Date/Time: 11/03/24 17:32 Attending Provider: Zoe Carey Admit Provider: Toni Santana Primary Care Provider: Erick Schmidt Other Providers: Simon Mendoza; Toni Santana
--- NOTE | 2024-11-04 15:00 | Communication Note ---
Date of Service: November 04, 2024 By CMS guidelines, a determination that the admission or continued stay is not medically necessary has been made by a member of the UR committee and a physi josh for this hospital stay, therefore a Code 44 will be completed and the Inpatient admission will be changed to outpatient.
[2024-11-04] MEDS: STROKE PATIENT DISCHARGE STA (15:17)
--- NOTE | 2024-11-04 15:19 | Pharmacy Report ---
- Date of Service November 04, 2024 - Pharmacy CVA/TIA Medication Review Medications to Prevent Stroke handout has been added to the patients discharge packet. Antiplatelet(s) * aspirin 81 mg, plavix 75 mg Cholesterol * atorvastatin 80 mg daily DVT Prophylaxis * SCD knee Therapeutic Anticoagulation * zio patch monitoring outpatient per notes recommended Type 2 Diabetes * Patient does not have T2DM
[2024-11-04 15:25] VITALS: PULSE 75
[2024-11-05] MEDS ORDERED: LOSARTAN POTASSIUM 50 MG TAB PO SCH (09:00)
[2024-11-05] MEDS ORDERED: FUROSEMIDE 20 MG TAB PO SCH (09:00)
--- NOTE | 2024-11-05 10:28 | Pharmacy Report ---
Pharmacist Stroke Counseling - Date of Service November 05, 2024 - Scope: Pharmacy has been consulted to provide medication discharge counseling for this patient admitted with ischemic stroke as per the Pharmacist Discharge Counseling for Stroke Patients Protocol. - Medications on Discharge: Home Medications Medication Instructions Recorded Confirmed calcium 600 mg (as carbonate)-vit 1 tab PO QAM 09/09/20 11/03/24 D3 20 mcg (800 unit) chewable tablet (Caltrate plus D) cholecalciferol (vitamin D3) 25 25 mcg PO QAM 09/09/20 11/03/24 mcg (1,000 unit) tablet (Vitamin D3) furosemide 20 mg tablet 20 mg PO QAM 09/09/20 11/03/24 losartan 50 mg tablet 50 mg PO QAM 09/09/20 11/03/24 metoprolol succinate 25 mg 25 mg PO BID 09/09/20 11/03/24 tablet,extended release 24 hr metoprolol succinate 50 mg 50 mg PO BID 09/09/20 11/03/24 tablet,extended release 24 hr multivitamin 1 tab PO QAM 09/09/20 11/03/24 ursodiol 300 mg capsule 300 mg PO QAM 09/09/20 11/03/24 diphenhydramine 25 1 tab PO HS 10/17/23 11/03/24 mg-acetaminophen 500 mg tablet (Tylenol PM Extra Strength) tamoxifen 20 mg tablet 20 mg PO DAILY 10/17/23 11/03/24 mecobalamin (vitamin B12) 1,000 1,000 mcg PO DAILY 04/30/24 11/03/24 mcg chewable tablet ascorbic acid (vitamin C) 500 mg 500 mg PO DAILY 11/03/24 11/03/24 tablet (Vitamin C) venlafaxine 150 mg 150 mg PO QAM 11/03/24 11/03/24 capsule,extended release 24 hr New Rx's Medication Instructions Recorded aspirin 81 mg tablet,delayed 81 mg PO QAM #30 tabs 11/04/24 release atorvastatin 40 mg tablet 80 mg (2 x 40 mg) PO HS #60 tabs 11/04/24 clopidogrel 75 mg tablet 75 mg PO QAM 20 days #20 tabs 11/04/24 - Action: The above medications, specifically ones for stroke treatment/prophylaxis, have been reviewed in detail with the patient and/or patient senior sales representative(s) prior to discharge. This includes indication, common adverse reactions, drug interactions, and medication administration. Medication counseling has been employed using the teach-back method to ensure understanding. - Outcome: The patient and/or patient senior sales representative(s) have demonstrated understanding of the medications. Additional comments: * Prescriptions picked up and follow-up appointment scheduled * No concerns from patient at this time Thank you for allowing pharmacy to be involved in the care of this patient. Please call [phone] with any additional questions
== END 2024-11-04 15:58 | disposition home or self-care (01) | DRG 65 ==
LOC: ED 14:43 → OBSVTOIN 17:32 → 4W 17:32 → INTOOBSV 17:32 → SUATTDRO 17:32 → 4W 19:40